=== PATIENT | male | born 1960 | race Caucasian/White ===

== ENCOUNTER 2017-03-18 12:49 | Inpatient (IN) | payer MEDICARE, OTHER ==
[~2017-03-18] VITALS: Ht 175.3 cm; Wt 76.7 kg
[2017-03-18 13:01] VITALS: BP 126/87; PULSE 74; RESP 20; TEMP 97.3; O2SAT 96
[2017-03-18] MEDS ORDERED: ACETAMINOPHEN 325 MG TAB PO ONE (13:30)
[2017-03-18 13:37] LABS: AUTOMATED NEUTROPHIL # 5.5 TH/MM3 (1.8-7.7); BASOPHIL # 0.1 TH/MM3 (0-0.2); BASOPHIL % 0.7 % (0.0-2.0); EOSINOPHIL # 0.3 TH/MM3 (0-0.4); EOSINOPHIL % 2.7 % (0.0-4.0); HEMATOCRIT 36.9 % (39.0-51.0); HEMO FLAGS DIFF FINAL; LYMPH % 29.5 % (9.0-44.0); LYMPHOCYTE # 2.8 TH/MM3 (1.0-4.8); MEAN CELL VOLUME 95.9 FL (80.0-100.0); MEAN CORPUSCULAR HEMOGLOBIN 32.7 PG (27.0-34.0); MEAN CORPUSCULAR HGB CONC 34.1 % (32.0-36.0); NEUT % 59.1 % (16.0-70.0); PLATELET COUNT 175 TH/MM3 (150-450); RED BLOOD COUNT 3.84 MIL/MM3 (4.50-5.90); RED CELL DISTRIBUTION WIDTH 12.2 % (11.6-17.2); WHITE BLOOD COUNT 9.3 TH/MM3 (4.0-11.0)
--- NOTE | 2017-03-18 13:44 | PD ---
HPI Chief Complaint: Psychiatric Symptoms Time Seen by Provider: 13:42 Travel History International Travel<30 days: No Contact w/Intl Traveler<30days: No Traveled to known affect area: No History of Present Illness HPI 57-year-old male that presents to the ED for evaluation of psychiatric illness. Patient has a chronic history of schizophrenia. This time he appears to be somewhat psychotic. Unclear as to the reason he is here. [facility] got [facility] message [facility] that apparently they are [facility]inghis medications. He appears the patient has been more psychotic and is sent him here for evaluation. Patient only complains that he cannot sleep and he is "awake ". Per patient he has diabetes and when I ask him if he takes insulin he states yes but when I ask him what his last and he gave himself insulin he tells me he doesn't take it. He does appear to be interacting with internal stimuli. He denies any drugs or alcohol. No homicidal or suicidal ideation. Again history is limited. Unclear as to the length of symptoms. He does complain of some vague abdominal pain. Patient cannot really tell me what he has. Per patient he is abdomen hurts but or tenderness he cannot really give me any other information. PFSH Past Medical History Medical History: Unable to Obtain Tetanus Vaccination: Unknown Past Surgical History Surgical History: Unable to Obtain Social History Alcohol Use: Yes Tobacco Use: No Substance Use: No Allergies-Medications (Allergen,Severity, Reaction): Coded Allergies: Chlorpromazine (Verified Allergy, Severe, 03/18/17) Uncoded Allergies: NKA (Allergy, Unknown, 08/06/03) THORAZINE (Allergy, Unknown, 08/06/03) Reported Meds & Prescriptions Reported Meds & Active Scripts Active No Active Prescriptions or Reported Medications Review of Systems ROS Limitations: Psychotic, Poor Historian Except as stated in HPI: all other systems reviewed are Neg Physical Exam Exam Limitations: Poor Historian, Psychotic Narrative GENERAL: SKIN: Warm and dry. HEAD: Atraumatic. Normocephalic. EYES: Pupils equal and round. No scleral icterus. No injection or drainage. ENT: No nasal bleeding or discharge. Mucous membranes pink and moist. Tongue is midline. No uvula deviation. NECK: Trachea midline. No JVD. CARDIOVASCULAR: Regular rate and rhythm. No murmurs, S3, S4. RESPIRATORY: No accessory muscle use. Clear to auscultation. Breath sounds equal bilaterally. GASTROINTESTINAL: Abdomen soft, non-tender, nondistended. Hepatic and splenic margins not palpable. MUSCULOSKELETAL: Extremities without clubbing, cyanosis, or edema. No obvious deformities. Full range of motion of the upper and lower extremities bilaterally. 2+ pulses bilaterally. NEUROLOGICAL: Awake and alert. No obvious cranial nerve deficits. Motor grossly within normal limits. Five out of 5 muscle strength in the arms and legs. Normal speech. PSYCHIATRIC: Psychotic mood and affect; insight and judgment normal. Data Data Last Documented VS Vital Signs Date Time Temp Pulse Resp B/P Pulse Ox O2 Delivery O2 Flow Rate FiO2 03/18/17 13:01 97.3 74 20 126/87 96 Orders Complete Blood Count With Diff (03/18/17 13:06) Comprehensive Metabolic Panel (03/18/17 13:06) Psych Screen (03/18/17 13:06) Drug Screen, Random Urine (03/18/17 13:06) Alcohol (Ethanol) (03/18/17 13:06) Salicylates (Aspirin) (03/18/17 13:06) Tylenol (Acetaminophen) (03/18/17 13:06) Acetaminophen (Tylenol) (03/18/17 13:30) Labs Laboratory Tests Test 03/18/17 13:20 White Blood Count 9.3 TH/MM3 Red Blood Count 3.84 MIL/MM3 Hemoglobin 12.6 GM/DL Hematocrit 36.9 % Mean Corpuscular Volume 95.9 FL Mean Corpuscular Hemoglobin 32.7 PG Mean Corpuscular Hemoglobin 34.1 % Concent Red Cell Distribution Width 12.2 % Platelet Count 175 TH/MM3 Mean Platelet Volume 9.6 FL Neutrophils (%) (Auto) 59.1 % Lymphocytes (%) (Auto) 29.5 % Monocytes (%) (Auto) 8.0 % Eosinophils (%) (Auto) 2.7 % Basophils (%) (Auto) 0.7 % Neutrophils # (Auto) 5.5 TH/MM3 Lymphocytes # (Auto) 2.8 TH/MM3 Monocytes # (Auto) 0.7 TH/MM3 Eosinophils # (Auto) 0.3 TH/MM3 Basophils # (Auto) 0.1 TH/MM3 CBC Comment DIFF FINAL Differential Comment Sodium Level 142 MEQ/L Potassium Level 4.1 MEQ/L Chloride Level 111 MEQ/L Carbon Dioxide Level 23.6 MEQ/L Anion Gap 7 MEQ/L Blood Urea Nitrogen 14 MG/DL Creatinine 1.29 MG/DL Estimat Glomerular Filtration 58 ML/MIN Rate Random Glucose 99 MG/DL Calcium Level 10.3 MG/DL Total Bilirubin 0.3 MG/DL Aspartate Amino Transf 17 U/L (AST/SGOT) Alanine Aminotransferase 19 U/L (ALT/SGPT) Alkaline Phosphatase 145 U/L Total Protein 7.0 GM/DL Albumin 3.9 GM/DL Acetaminophen Level LESS THAN 2.0 MCG/ML Ethyl Alcohol Level LESS THAN 3 MG/DL MDM Medical Decision Making Medical Screen Exam Complete: Yes Emergency Medical Condition: Yes Medical Record Reviewed: Yes Interpretation(s) CBC & BMP Diagram 03/18/17 13:20 LFTs WNL tox negative Differential Diagnosis Depression versus suicidal ideation versus anxiety versus adjustment disorder versus mood disorder versus bipolar disorder versus schizophrenia versus paranoid disorder versus psychosis versus substance abuse versus alcohol abuse versus alcohol induced psychosis versus homicidality addition versus cutting versus personality disorder Narrative Course 57-year-old male that presents to the ED for evaluation of psych. Patient was properly examined and was found to have signs and symptoms consistent with appears to be psychosis likely from schizophrenia. At this time I recommend labs. Patient will be medically clear. Okay to be seen by psych. Mental health screening was discussed with the patient. Diagnosis Primary Impression: Schizophrenia Qualified Code: F20.9 - Schizophrenia, unspecified type Scripts No Active Prescriptions or Reported Meds Garett Mccarthy Mar 18, 2017 13:44
[2017-03-18 13:53] LABS: ALT (GPT) 19 U/L (12-78); ANION GAP 7 MEQ/L (5-15); AST (GOT) 17 U/L (15-37); BICARBONATE 23.6 MEQ/L (21.0-32.0); BLOOD UREA NITROGEN 14 MG/DL (7-18); CHLORIDE 111 MEQ/L (98-107); GLOMERULAR FILTRATION RATE 58 ML/MIN (>89); POTASSIUM 4.1 MEQ/L (3.5-5.1); SODIUM (NA) 142 MEQ/L (136-145)
[2017-03-18 13:55] LABS: ACETAMINOPHEN LESS THAN 2.0 MCG/ML (10.0-30.0); ALKALINE PHOSPHATASE 145 U/L (45-117); TOTAL BILIRUBIN ADULT 0.3 MG/DL (0.2-1.0)
--- NOTE | 2017-03-18 18:16 | PD ---
History of Present Illness Chief Complaint: Psychiatric Symptoms Time Seen by Provider: 17:15 Travel History International Travel<30 Days: No Contact w/Intl Traveler<30days: No Known affected area: No Legal Status Legal Status: Voluntary History of Present Illness: History of Present Illness HPI 57-year-old male with history of schizoaffective disorder that presents to the ED on a voluntary basis for evaluation of psychiatric illness. From ED documentation it appears that the patient was sent here from [facility] although no documentation accompanies him. Unclear as to the reason he is here.Patient only complains that he cannot sleep and he is "awake " . Clinical information is limited as dakota is unable to provide much information at si time. EMR is reviewed. His last contact with [facility] psychiatry dept was in 2001 and he was hospitalized from May 2002 until Jul 2002. At the time he was given a dx of schizoaffective disorder as well as PSA. He has been treated with Clozaril in the past as per EMR. I have called his next of kin listed but the number on the record has been discontinued. I called [facility] for information. He is a patient there and his last medications are Tegretol 200 mg po BID, Doxepin 200 mg po at HS and Risperdal 4 mg po at HS. No other information available as it is after hours. Patient is seen in [facility] pod. Tall and thin male with a long newman and long hair. He is maintaining basic hygiene. He has resting tremor of upper extremities as well as slight fasciculation of lower lip. The patient is only able to provide minimal information as he appears to be internally preoccupied. His thoughts are fragmented " I'm not thinking of anything". " Hospital". " Not mentally ill". " I am saying diabetic. I need a rest ". He tells me that he is not sleeping but unable to provide any clarification. In terms of medication compliance he initially tells me he is not taking his medication but later says that he is. He does not appear to be under the influence but has not provided a urine sample as of this evaluation. [facility] Past Medical History Medical History: Unable to Obtain Tetanus Vaccination: Unknown Past Surgical History Surgical History: Unable to Obtain Psychiatric History Psychiatric History Hx Psychiatric Treatment: Was psychiatricallly hosp at [facility] in [place]. Is followed by [facility]. History of Inpatient Treatment: Yes Guns or firearms in home: No (unable to assess) Social History Single male. has been living by himself. Hx Alcohol Use: Yes Hx Tobacco Use: No Hx Substance Use: No (past hx of substance use as per EMR.) Family Psychiatric History Unknown. Allergies-Medications (Allergen,Severity, Reaction): Coded Allergies: Chlorpromazine (Verified Allergy, Severe, 03/18/17) Uncoded Allergies: NKA (Allergy, Unknown, 08/06/03) THORAZINE (Allergy, Unknown, 08/06/03) Reported Meds & Prescriptions Reported Meds & Active Scripts Active No Active Prescriptions or Reported Medications Review of Systems ROS Limitations: Psychotic Exam Alert: Yes [place]: Person, Place Mood: Anxious Affect: Flat Speech: Illogical ( w thought blocking) Eye Contact: Indirect Memory Intact: Comment (unable to test) Hallucinations: Other (appears internally stimulated) Delusions: No (unable to determine) Suicidal: Ideation (as per ed documetnation denied) Homicidal: Ideation (as per documentation denied. ) Insight/Judgement unable to assess. [facility] Medical Decision Making Medical Record Reviewed: Yes Assessment/Plan 57 year old male with hx of schizoaffective disorder under a voluntary basis who appears to be psychotic at this time. he may not be taking his psychiatric medications. Limited clinical information is available at this time. He requires inpatient psychiatric treatment at this time . He has requested to sign voluntary admission. Staff to contact [facility] for further information. Orders Complete Blood Count With Diff (03/18/17 13:06) Comprehensive Metabolic Panel (03/18/17 13:06) Psych Screen (03/18/17 13:06) Drug Screen, Random Urine (03/18/17 13:06) Alcohol (Ethanol) (03/18/17 13:06) Salicylates (Aspirin) (03/18/17 13:06) Tylenol (Acetaminophen) (03/18/17 13:06) Acetaminophen (Tylenol) (03/18/17 13:30) Results Vital Signs Date Time Temp Pulse Resp B/P Pulse Ox O2 Delivery O2 Flow Rate FiO2 03/18/17 13:01 97.3 74 20 126/87 96 Laboratory Tests Test 03/18/17 13:20 White Blood Count 9.3 Red Blood Count 3.84 Hemoglobin 12.6 Hematocrit 36.9 Mean Corpuscular Volume 95.9 Mean Corpuscular Hemoglobin 32.7 Mean Corpuscular Hemoglobin 34.1 Concent Red Cell Distribution Width 12.2 Platelet Count 175 Mean Platelet Volume 9.6 Neutrophils (%) (Auto) 59.1 Lymphocytes (%) (Auto) 29.5 Monocytes (%) (Auto) 8.0 Eosinophils (%) (Auto) 2.7 Basophils (%) (Auto) 0.7 Neutrophils # (Auto) 5.5 Lymphocytes # (Auto) 2.8 Monocytes # (Auto) 0.7 Eosinophils # (Auto) 0.3 Basophils # (Auto) 0.1 CBC Comment DIFF FINAL Differential Comment Sodium Level 142 Potassium Level 4.1 Chloride Level 111 Carbon Dioxide Level 23.6 Anion Gap 7 Blood Urea Nitrogen 14 Creatinine 1.29 Estimat Glomerular Filtration 58 Rate Random Glucose 99 Calcium Level 10.3 Total Bilirubin 0.3 Aspartate Amino Transf 17 (AST/SGOT) Alanine Aminotransferase 19 (ALT/SGPT) Alkaline Phosphatase 145 Total Protein 7.0 Albumin 3.9 Salicylates Level 2.5 Acetaminophen Level LESS THAN 2.0 Ethyl Alcohol Level LESS THAN 3 Diagnosis Primary Impression: Schizoaffective disorder Admitting Information Admitting Physician Requests: Admit Prescriptions No Active Prescriptions or Reported Meds Problem Qualifiers Primary Impression: Schizoaffective disorder Qualified Code: F25.0 - Schizoaffective disorder, bipolar type Rosina Easley Mar 18, 2017 18:16
[2017-03-18] MEDS ORDERED: TEGR200T PO (18:28)
[2017-03-18] MEDS ORDERED: RISP4TAB41 PO (18:30)
[2017-03-18] MEDS ORDERED: MAGNESIUM HYDROXIDE SUSP 30 ML CUP PO PRN (18:30)
[2017-03-18] MEDS ORDERED: DOXE100C4 PO (18:31)
[2017-03-18 19:25] VITALS: BP 138/65; PULSE 69; RESP 18; O2SAT 98
[2017-03-18 19:30] VITALS: BP 155/95; PULSE 97; RESP 20; O2SAT 98
[2017-03-19 05:42] VITALS: BP 136/87; PULSE 90; RESP 17; TEMP 98; O2SAT 95
[2017-03-19 09:54] LABS: ANION GAP 12 MEQ/L (5-15); BICARBONATE 24.7 MEQ/L (21.0-32.0); BLOOD UREA NITROGEN 19 MG/DL (7-18); CHLORIDE 102 MEQ/L (98-107); GLOMERULAR FILTRATION RATE 52 ML/MIN (>89); HDL CHOLESTEROL 41.8 MG/DL (40.0-60.0); LDL CHOLESTEROL 117 MG/DL (0-99); POTASSIUM 3.9 MEQ/L (3.5-5.1); SODIUM (NA) 139 MEQ/L (136-145)
[2017-03-19] MEDS ORDERED: traZODone HCL 50 MG TAB PO PRN (17:30)
[2017-03-19] MEDS ORDERED: diphenhydrAMINE HCL 50 MG/ML VIAL IM PRN (17:30)
[2017-03-19] MEDS ORDERED: ACETAMINOPHEN 325 MG TAB PO PRN (17:30)
[2017-03-19] MEDS ORDERED: LORazepam 2 MG/ML VIAL IM PRN (17:30)
[2017-03-19] MEDS ORDERED: MAGNESIUM HYDROXIDE SUSP 30 ML CUP PO PRN (17:30)
--- NOTE | 2017-03-19 17:35 | HHI.HP ---
Provisional Diagnosis Admission Date Mar 18, 2017 at 18:21 [place] I. Schizophrenia Certification of Person's Competence To Provide Express and Informed Consent I have personally examined Akira Wilde , a person being served at [facility] on, Mar 19, 2017 17:15. Express and informed consent means consent voluntarily given in writing, by a competent person, after sufficient explanation and disclosure of the subject matter involved to enable the person to make a knowing and willful decision without any element of force, fraud, deceit, duress, or other form of constraint or coercion. This person is 18 years of age or older, is not now known to be incompetent to consent to treatment with a guardian advocate, and does not have a health care surrogate or proxy currently making medical treatment decisions. I have found this person to be one of the following: [] Competent to provide express and informed consent, as defined above, for voluntary admission to this facility and is competent to provide express and informed consent for treatment. He/she has the consistent capacity to make well reasoned, willful, and knowing decisions concerning his or her medical or mental health treatment. The person fully and consistently understands the purpose of the admission for examination/placement and is fully capable of personally exercising all rights assured [place] [X] Incompetent to provide express and informed consent to voluntary admission, and this is incompetent to provide express and informed consent to treatment. The person must be transferred to involuntary status and a petition for a guardian advocate filed with the Circuit Court. [] Refusing to provide express and informed consent to voluntary admission but is competent to provide express and informed consent for treatment. The person must be discharged or transferred to involuntary status. Form shall be completed within 24 hours of a person's arrival at the receiving facility and filed in the clinical record of each person: 1. Admitted on a voluntary basis 2. Permitted to provide express and informed consent to his/her own treatment 3. Allowed to transfer from involuntary to voluntary status 4. Prior to permitting a person to consent to his or her own treatment after having been previously found incompetent to consent to treatment. History of Present Illness Capacity: Lacks Capacity HPI This is a 57-year-old male with a long history of psychiatric illness, variously described as schizoaffective disorder and schizophrenia. Patient was sent here from [facility] and he was not accompanied by any clinical information. He is however a patient there and is treated on an outpatient basis. He has been treated with Risperdal and Tegretol in the recent past and Clozaril in the distant past. The patient is an extremely poor historian and unable to answer questions for this physician. In fact, he exhibits echolalia with this physician. He was not able to eat his dinner in front of this physician despite being repeatedly encouraged to do so. He is disorganized and obviously unable to care for himself. There is no information as to whether the patient has been compliant with his medicines and the recent past, using drugs, etc. Review of Systems ROS Limitations: Clinical Condition Except as stated in HPI: all other systems reviewed are Neg Past Psych History Psychological trauma history Unknown Violence risk - others (6 mos) Minimal Violence risk - self (6 mos) Moderate Substance Abuse History Drugs/Alcohol past 12 months Denied Past Family Social History Coded Allergies: Chlorpromazine (Verified Allergy, Severe, 03/18/17) Uncoded Allergies: NKA (Allergy, Unknown, 08/06/03) THORAZINE (Allergy, Unknown, 08/06/03) Reported Medications Doxepin 100 Mg [id number] Mg PO HS #30 CAP Ref 0 03/18/17 Risperidone (Risperdal)4 Mg Tab4 Mg PO HS #30 TAB Ref 0 03/18/17 Carbamazepine (Tegretol)200 Mg [id number] Mg PO BID #60 TAB Ref 0 03/18/17 Current Medications Medications (Trade) Dose Ordered Sig/Nikhil Route Start Time Stop Time Status Last Admin (Tylenol) 650 mg Q4H PRN PO 03/18/17 18:30 (Milk Of Magnesia Liq) 30 ml DAILY PRN PO 03/18/17 18:30 (Mag-Al Plus Susp Liq) 30 ml Q6H PRN PO 03/18/17 18:30 Social History Unknown Patient's Strengths (min. 2) Verbal and has access to healthcare. Physical Exam GENERAL: SKIN: Warm and dry. HEAD: Normocephalic. EYES: No scleral icterus. No injection or drainage. NECK: Supple, trachea midline. No JVD or lymphadenopathy. CARDIOVASCULAR: Regular rate and rhythm without murmurs, gallops, or rubs. RESPIRATORY: Breath sounds equal bilaterally. No accessory muscle use. GASTROINTESTINAL: Abdomen soft, non-tender, nondistended. MUSCULOSKELETAL: No cyanosis, or edema. BACK: Nontender without obvious deformity. No CVA tenderness. Vital Signs Vital Signs Date Time Temp Pulse Resp B/P Pulse Ox O2 Delivery O2 Flow Rate FiO2 03/19/17 05:42 98.0 90 17 136/87 95 03/18/17 19:25 Room Air Mental Status Examination Speech: Incoherent Orientation: Person Memory: Impaired (describe) Thought Process: Loose Association Thought Content: Bizarre thinking, Paranoid Hallucination Type: Auditory Attention and Concentration: Easily Distracted Suicidal Ideation: No Previous Suicide Attempts: No Homicidal Ideation: No Previous Homicide Attempts: No Insight: Fair, Poor Judgment: Unrealistic Affect: Anxious Affect if Inappropriate: Blunt Mood: Appropriate, Sad Motor Activity: Normal gait Assessment & Plan Problem List: (1) Schizophrenia, disorganized, chronic ICD Code: F20.1 Assessment & Plan Estimated LOS: 7 days patient to receive an EKG and metabolic workup due to his need for antipsychotic therapy. This physician is concerned because the patient appears to have a belly that is enlarged. This physician is also considering long-acting injectable medications and therefore wants to make sure that the patient's cardiac conduction system is adequate to support their use. Finally, because the patient has been on Risperdal 4 mg per day, his prolactin level will be checked. We want to avoid sexual dysfunction, gynecomastia and osteoporosis. At this time he is a appropriate candidate for a change in medicine as the Risperdal was not apparently helping him. He will therefore be started on low dose Abilify at night. Jose M Mancilla MD Mar 19, 2017 17:35
[2017-03-19 18:17] VITALS: BP 129/91; PULSE 77; RESP 18; TEMP 97.8; O2SAT 97
[2017-03-19] MEDS ORDERED: ARIPiprazole 5 MG TAB PO SCH (21:00)
[2017-03-19] MEDS ORDERED: cloZAPine 100 MG TAB PO SCH (21:00)
[2017-03-20 06:00] VITALS: BP 126/66; PULSE 68; RESP 18; TEMP 97.6; O2SAT 98
[2017-03-20 08:18] LABS: AUTOMATED NEUTROPHIL # 7.4 TH/MM3 (1.8-7.7); BASOPHIL % 0.4 % (0.0-2.0); EOSINOPHIL # 0.1 TH/MM3 (0-0.4); HEMATOCRIT 38.6 % (39.0-51.0); HEMO FLAGS DIFF FINAL; LYMPH % 22.4 % (9.0-44.0); LYMPHOCYTE # 2.4 TH/MM3 (1.0-4.8); MEAN CELL VOLUME 95.1 FL (80.0-100.0); MEAN CORPUSCULAR HEMOGLOBIN 33.3 PG (27.0-34.0); MONO % 7.9 % (0.0-8.0); NEUT % 68.3 % (16.0-70.0); PLATELET COUNT 202 TH/MM3 (150-450); RED BLOOD COUNT 4.06 MIL/MM3 (4.50-5.90); RED CELL DISTRIBUTION WIDTH 12.3 % (11.6-17.2); WHITE BLOOD COUNT 10.9 TH/MM3 (4.0-11.0)
[2017-03-20 08:55] LABS: ALKALINE PHOSPHATASE 157 U/L (45-117); ALT (GPT) 22 U/L (12-78); ANION GAP 12 MEQ/L (5-15); AST (GOT) 18 U/L (15-37); BICARBONATE 21.3 MEQ/L (21.0-32.0); BLOOD UREA NITROGEN 19 MG/DL (7-18); CHLORIDE 108 MEQ/L (98-107); GLOMERULAR FILTRATION RATE 55 ML/MIN (>89); SODIUM (NA) 141 MEQ/L (136-145); TOTAL BILIRUBIN ADULT 0.3 MG/DL (0.2-1.0)
[2017-03-20] MEDS ORDERED: ZIPRASIDONE MESYLATE 20 MG VIAL IM ONE ×3 (10:10→20:45)
[2017-03-20] MEDS ORDERED: diphenhydrAMINE HCL 50 MG/ML VIAL ONE (10:10)
[2017-03-20] MEDS ORDERED: diphenhydrAMINE HCL 50 MG/ML VIAL IM ONE ×2 (11:00→20:45)
[2017-03-20 13:54] VITALS: BP 127/67; PULSE 83; RESP 14; O2SAT 99
[2017-03-20 15:26] VITALS: BP 127/87; PULSE 85; RESP 18; TEMP 98.1; O2SAT 95
--- NOTE | 2017-03-20 15:43 | HHI.PYPN ---
Subjective Remarks This is a request for second opinion. Patient was seen, admission note reviewed , and case discussed with nursing. Patient is disheveled, disorganized, and responding to internal stimuli. He is talking to himself, pacing the hallways, and laughing inappropriately. He is difficult to engage not answering questions appropriately. Does deny auditory visual hallucinations and has no insight into his reasons for admission. We are waiting consent to administer medications Objective Alert: Yes [place]: Person, Place Mood: Other (elevated) Affect: Labile Memory Intact: Comment (unable to test) Hallucinations: Other (appears internally stimulated) Delusions: No (unable to determine) Delusion Type: Paranoid (responding to internal stimuli) Suicidal: Ideation (as per ed documetnation denied) Homicidal: Ideation (as per documentation denied. ) Insight/Judgment Poor Labs Test 03/20/17 07:40 White Blood Count 10.9 TH/MM3 Red Blood Count 4.06 MIL/MM3 Hemoglobin 13.5 GM/DL Hematocrit 38.6 % Mean Corpuscular Volume 95.1 FL Mean Corpuscular Hemoglobin 33.3 PG Mean Corpuscular Hemoglobin 35.0 % Concent Red Cell Distribution Width 12.3 % Platelet Count 202 TH/MM3 Mean Platelet Volume 9.9 FL Neutrophils (%) (Auto) 68.3 % Lymphocytes (%) (Auto) 22.4 % Monocytes (%) (Auto) 7.9 % Eosinophils (%) (Auto) 1.0 % Basophils (%) (Auto) 0.4 % Neutrophils # (Auto) 7.4 TH/MM3 Lymphocytes # (Auto) 2.4 TH/MM3 Monocytes # (Auto) 0.9 TH/MM3 Eosinophils # (Auto) 0.1 TH/MM3 Basophils # (Auto) 0.0 TH/MM3 CBC Comment DIFF FINAL Differential Comment Sodium Level 141 MEQ/L Potassium Level 4.0 MEQ/L Chloride Level 108 MEQ/L Carbon Dioxide Level 21.3 MEQ/L Anion Gap 12 MEQ/L Blood Urea Nitrogen 19 MG/DL Creatinine 1.35 MG/DL Estimat Glomerular Filtration 55 ML/MIN Rate Random Glucose 122 MG/DL Calcium Level 10.5 MG/DL Total Bilirubin 0.3 MG/DL Aspartate Amino Transf 18 U/L (AST/SGOT) Alanine Aminotransferase 22 U/L (ALT/SGPT) Alkaline Phosphatase 157 U/L Total Protein 7.7 GM/DL Albumin 4.1 GM/DL Thyroid Stimulating Hormone 0.898 uIU/ML 3rd Gen Carbamazepine (Tegretol) Level 0.5 MCG/ML Vitals/IOs Vital Signs Date Time Temp Pulse Resp B/P Pulse Ox O2 Delivery O2 Flow Rate FiO2 03/20/17 15:26 98.1 85 18 127/87 95 03/18/17 19:25 Room Air Assessment & Plan Problem List: (1) Schizophrenia, disorganized, chronic ICD Code: F20.1 Assessment & Plan I agree with first opinion to continue petition. Criteria include acute psychosis and bizarre behavior Justification for Cont. Inpt. Patient will decompensate in a less restrictive setting Stepan Peres DO Mar 20, 2017 15:43
[2017-03-21] MEDS ORDERED: FLUMAZENIL 0.5 MG/5 ML VIAL IV PUSH PRN (05:30)
[2017-03-21] MEDS ORDERED: HALOPERIDOL LACTATE 5 MG/ML AMP IM ONE (05:30)
[2017-03-21] MEDS ORDERED: LORazepam 2 MG/ML VIAL IM ONE (05:30)
[2017-03-21] MEDS ORDERED: LORazepam 1 MG TAB PO PRN (05:30)
[2017-03-21] MEDS ORDERED: LORazepam 2 MG/ML VIAL IV PUSH PRN ×4 (05:30)
[2017-03-21 06:24] VITALS: BP 136/73; PULSE 84; RESP 18; TEMP 98.9; O2SAT 99
[2017-03-21] MEDS: LORazepam 2 MG TAB PO PRN ×2 (09:30→21:08)
--- NOTE | 2017-03-21 11:30 | HHI.PYPN ---
Subjective Remarks Patient seen and examined with counselor and nurse. Chart reviewed. Case discussed with nursing staff reports that the patient exhibits echolalia and is fairly disorganized. On my examination today, the patient is oriented to person , location and year but does indeed present as fairly disorganized. A significant fraction of his speech is word salad. He exhibits echopraxia. He complains of some back pain but has no other somatic complaints. Review of Systems ROS Limitations: Poor Historian Except as stated in HPI: all other systems reviewed are Neg Objective Alert: Yes [place]: Person, Place Mood: Calm Affect: Blunted Memory Intact: Comment (not formally assessed) Hallucinations: Other (remains internally preoccupied) Delusions: No Delusion Type: Other (no sandra delusions but thought disorder interferes) Suicidal: Ideation (no SI) Homicidal: Ideation (no HI) Insight/Judgment Poor Remarks No abnormal motor movements noted. Thought process disorganized. Speech rambling. Grooming and hygiene poor. Labs Labs reviewed. Vitals/IOs Vital Signs Date Time Temp Pulse Resp B/P Pulse Ox O2 Delivery O2 Flow Rate FiO2 03/21/17 06:24 98.9 84 18 136/73 99 03/18/17 19:25 Room Air Assessment & Plan Problem List: (1) Schizophrenia, disorganized, chronic ICD Code: F20.1 Assessment & Plan Resume patient's Risperdal and Tegretol once we obtain consents. Could consider long-acting injectable antipsychotic. LFTs okay besides mildly elevated alkaline phosphatase. Platelets okay. Continue to monitor on the high acuity unit. Continue other medications and care as ordered. Justification for Cont. Inpt. Impairment in reality construction. Medication changes in process. High risk for decompensation in a restrictive environment. Discharge Planning Pending psychiatric stabilization. Request HC Surrog/Guard Advoc?: Yes (I have requested healthcare surrogate/ guardian advocate) Alphonse Barber MD Mar 21, 2017 11:30
[2017-03-21 12:17] VITALS: BP 142/83; PULSE 84
[2017-03-21 13:37] LABS: HEMOGLOBIN A1b 1.4 %; HEMOGLOBIN Ao 83.5 %; HEMOGLOBIN F 0.9 %; HEMOGLOBIN LA1C 2.4 %; HEMOGLOBIN P3 4.1 %
[2017-03-21 18:23] VITALS: BP 129/79; PULSE 100; RESP 18; TEMP 98.4; O2SAT 97
[2017-03-21] MEDS ORDERED: risperiDONE ODT 2 MG TAB PO SCH (21:00)
[2017-03-22] MEDS: LORazepam 2 MG TAB PO PRN ×4 (02:45→20:00)
[2017-03-22 08:08] VITALS: BP 118/65; PULSE 78; RESP 18; TEMP 98.6; O2SAT 96
--- NOTE | 2017-03-22 11:39 | HHI.PYPN ---
Subjective Remarks Patient seen and examined with counselor and nurse. Chart reviewed. Eating well. Sleep is somewhat fragmented. Case discussed with counselor, nurse and occupational therapist in treatment team. Per nursing staff, patient remains behaviorally disorganized. Counselor has reached out to the patient's continuous pillowcase cutter through the FACT team. Unfortunately, continuous pillowcase cutter is not comfortable acting is patient's healthcare surrogate. On my examination today, the patient reports that he is "feeling good." I note that he has been incontinent of urine. He says that he is "talking with God." No SI or HI voiced. Psychiatric interview somewhat limited because of patient's degree of thought disorganization. We presently do not have anyone to act as healthcare surrogate for this patient. I did endeavor to call over to [facility] to see if they have any contact information for a friend or family member might serve as healthcare surrogate, but they have none. The number for the patient's father in our electronic medical record is nonfunctional. Review of Systems ROS Limitations: Poor Historian Except as stated in HPI: all other systems reviewed are Neg Objective Alert: Yes [place]: Person, Place Mood: Calm Affect: Blunted (tending towards flat) Memory Intact: Comment (not formally assessed) Hallucinations: Auditory (talking to God) Delusions: Yes Delusion Type: Other (judaism) Suicidal: Ideation (no SI) Homicidal: Ideation (no HI) Insight/Judgment Poor Remarks Patient with mild tremor but no diaphoresis or mydriasis. Incontinence of urine noted as I said. No other motoric abnormalities noted. Speech rambling. Labs Labs reviewed. No new labs. 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 Check a urinalysis given incontinence of urine. Continue to monitor on the high acuity unit in the meantime. Continue other medications and care as ordered. Justification for Cont. Inpt. Impairment in self-care. Impairment in reality construction. High risk for decompensation in a less restrictive environment. Discharge Planning Pending psychiatric stabilization. Request HC Surrog/Guard Advoc?: Yes Alphonse Barber MD Mar 22, 2017 11:39
[2017-03-22 13:42] VITALS: BP 120/73; PULSE 86
[2017-03-22 17:48] VITALS: BP 130/67; PULSE 77; RESP 17; TEMP 99.5; O2SAT 95
[2017-03-23] MEDS: LORazepam 2 MG TAB PO PRN (00:14)
[2017-03-23 06:02] VITALS: BP 129/78; PULSE 96; RESP 16; TEMP 97.1; O2SAT 96
[2017-03-23 11:31] LABS: BLOOD, URINE NEG (NEG); COMMENT (UR) CULT NOT INDICATED; CULTURE IF INDICATED CULT NOT INDICATED; GLUCOSE,URINE NEG (NEG); KETONE, URINE TRACE mg/dL (NEG); MUCUS URINE FEW /lpf (OCC); NITRITE,URINE NEG (NEG); PH, URINE 5.5 (5.0-8.5); URINE COLOR LIGHT-YELLOW (YELLW/STRAW)
--- NOTE | 2017-03-23 12:08 | HHI.PYPN ---
Subjective Remarks Patient seen and examined with counselor and nurse. Chart reviewed. Case discussed with nursing staff. Patient is having ongoing issues with incontinence of urine. On my examination today, patient remains quite disorganized. It is difficult to make much sense of what he is saying. He continues to display some echophenomena. He is presently calm. No SI or HI voiced. Psychotropics are on hold awaiting consents. Review of Systems ROS Limitations: Psychotic, Poor Historian Except as stated in HPI: all other systems reviewed are Neg Objective Alert: Yes [place]: Person, Place Mood: Calm Affect: Flat Memory Intact: Comment (not formally assessed) Hallucinations: Other (remains internally preoccupied) Delusions: No Delusion Type: Other (no delusions elicited today) Suicidal: Ideation (no SI) Homicidal: Ideation (no HI) Insight/Judgment Poor Remarks Thought process disorganized. Speech rambling, word salad at times. Grooming and hygiene are poor. Labs Labs reviewed. Urinalysis is bland. Test 03/23/17 10:50 Urine Color LIGHT-YELLOW Urine Turbidity CLEAR Urine pH 5.5 Urine Specific [place] 1.006 Urine Protein TRACE mg/dL Urine Glucose (UA) NEG mg/dL Urine Ketones TRACE mg/dL Urine Occult Blood NEG Urine Nitrite NEG Urine Bilirubin NEG Urine Urobilinogen LESS THAN 2.0 MG/DL Urine Leukocyte Esterase NEG Urine RBC LESS THAN 1 /hpf Urine WBC LESS THAN 1 /hpf Urine Mucus FEW /lpf Urine Sperm RARE Microscopic Urinalysis Comment CULT NOT INDICATED Vitals/IOs Vital Signs Date Time Temp Pulse Resp B/P Pulse Ox O2 Delivery O2 Flow Rate FiO2 03/23/17 06:02 97.1 96 16 129/78 96 Assessment & Plan Problem List: (1) Schizophrenia Assessment & Plan: Acute exacerbation ICD Code: F20.9 Assessment & Plan We are awaiting appointment of a guardian advocate to resume psychotropics. Continue to monitor on the high acuity unit in the meantime. I will ask the hospitalist to evaluate the patient for his ongoing issues with incontinence, although I do suspect this is at least in part related to his disorganized behavior in the context of his decompensated disorganized schizophrenia. Continue other medications and care as ordered. Justification for Cont. Inpt. Impairment in self-care. Impairment in reality construction. High risk for decompensation in a restrictive environment. Discharge Planning Pending outcome of [place] [facility] tomorrow. Request HC Surrog/Guard Advoc?: Yes Problem Qualifiers (1) Schizophrenia: Qualified Code: F20.1 - Disorganized schizophrenia Alphonse Barber MD Mar 23, 2017 12:08
[2017-03-23 18:48] VITALS: BP 147/81; PULSE 83; RESP 18; TEMP 97.8; O2SAT 96
[2017-03-24 05:40] VITALS: BP 130/76; PULSE 78; RESP 18; TEMP 99.1; O2SAT 98
--- NOTE | 2017-03-24 10:52 | HHI.PYPN ---
Subjective Remarks Patient seen and case discussed with nursing staff. Chart reviewed. Per nursing staff, patient remains very disorganized and will periodically clap his hands together for no reason. For me today, patient presents in much the same fashion. He holds his hands up in the air for no particular reason. He engages in other disorganized behaviors. Speech is largely word salad. Patient 's case was presented to the [employer] act court today, and the patient was retained on the unit and appointed guardian advocate through [facility]. Review of Systems ROS Limitations: Psychotic, Poor Historian Except as stated in HPI: all other systems reviewed are Neg Objective Alert: Yes [place]: Person, Place Mood: Calm Affect: Blunted Memory Intact: Comment (not formally assessed) Hallucinations: Other (internally stimulated) Delusions: Yes Delusion Type: Other (possible restorationism delusions.) Suicidal: Ideation (no SI) Homicidal: Ideation (no HI) Insight/Judgment Poor Remarks Besides the disorganized behaviors, no abnormal motor movements noted. Thought process remains disorganized. Speech rambling and largely word salad. Grooming and hygiene are poor. Labs Labs reviewed. Vitals/IOs Vital Signs Date Time Temp Pulse Resp B/P Pulse Ox O2 Delivery O2 Flow Rate FiO2 03/24/17 05:40 99.1 78 18 130/76 98 Assessment & Plan Problem List: (1) Schizophrenia ICD Code: F20.9 Assessment & Plan Now that we have a guardian advocate, resume Risperdal at a dose of 1 mg twice daily with plans to titrate to effect. Could also consider long-acting injectable antipsychotic. Resume carbamazepine. Plan to check a level after the appropriate interval. Continue to monitor on the high acuity unit. Hospitalist data management consultant input noted and appreciated. Continue other medications and care as ordered. Justification for Cont. Inpt. Impairment in reality construction. Impairment in self-care. Impairment in social function. Medication changes planned. High risk for decompensation pending psychiatric stabilization. Discharge Planning Pending psychiatric stabilization. Request HC Surrog/Guard Advoc?: Yes Problem Qualifiers (1) Schizophrenia: Qualified Code: F20.1 - Disorganized schizophrenia Alphonse Barber MD Mar 24, 2017 10:51
--- NOTE | 2017-03-24 15:18 | PD.CONS ---
[facility] By [facility]ry team Reason for Consult Urinary incontinence Primary Care Physician Unknown Diagnoses: History of Present Illness Patient is a 57-year-old male with primary medical history of schizophrenia who initially came into the hospital for evaluation of psychiatric illness. As per records, patient was transferred from [facility] although no documentation of completed the patient. It was for unclear reason that patient came to the hospital but initial complaint was she is unable to sleep and has been awake. He is now admitted to inpatient psychiatry unit for further evaluation. Consulted for medical management of urinary incontinence. Patient has ongoing urinary incontinence but he also has significant behavioral disorganization secondary to schizophrenia. Patient seen and examined today. Reports that he is able to feel that he is going to urinate but unable to control it. Denies any dysuria, hematuria, abdominal pain and cramping. Denies pain and discomfort. Denies SOB/ dyspnea. Denies chest pain, palpitations, headaches, dizziness. Denies fevers, chills, n/v/d. Denies being diagnosed with any prostate problems. Review of Systems ROS Limitations: Poor Historian Past Family Social History Allergies: Coded Allergies: Chlorpromazine (Verified Allergy, Severe, 03/18/17) Uncoded Allergies: NKA (Allergy, Unknown, 08/06/03) THORAZINE (Allergy, Unknown, 08/06/03) Past Medical History Denies any past medical history but reports he may have diabetes Past Surgical History Denies any past surgical history Reported Medications Reported Meds & Active Scripts Active Reported Doxepin (Doxepin HCl) 100 Mg Cap 100 Mg PO HS Risperdal (Risperidone) 4 Mg Tab 4 Mg PO HS Tegretol (Carbamazepine) 200 Mg Tab 100 Mg PO BID Active Ordered Medications Current Medications Medications (Trade) Dose Ordered Sig/Nikhil Route Start Time Stop Time Status Last Admin (Tylenol) 650 mg Q4H PRN PO 03/18/17 18:30 (Milk Of Magnesia Liq) 30 ml DAILY PRN PO 03/18/17 18:30 (Mag-Al Plus Susp Liq) 30 ml Q6H PRN PO 03/18/17 18:30 (Ativan) 1 mg Q6H PRN PO 03/19/17 17:30 Hold (Ativan Inj) 1 mg Q6H PRN IM 03/19/17 17:30 Hold (Benadryl) 50 mg Q6H PRN PO 03/19/17 17:30 Hold (Benadryl Inj) 50 mg Q6H PRN IM 03/19/17 17:30 Hold (Tylenol) 650 mg Q4H PRN PO 03/19/17 17:30 (Milk Of Magnesia Liq) 30 ml DAILY PRN PO 03/19/17 17:30 (Ativan) 1 mg Q4H PRN PO 03/21/17 05:30 03/23/17 20:12 (Ativan Inj) 1 mg Q4H PRN IV PUSH 03/21/17 05:30 (Ativan) 2 mg Q2H PRN PO 03/21/17 05:30 03/23/17 00:14 (Ativan Inj) 2 mg Q2H PRN IV PUSH 03/21/17 05:30 (Ativan Inj) 2 mg Q1H PRN IV PUSH 03/21/17 05:30 (Ativan Inj) 2 mg Q15M PRN IV PUSH 03/21/17 05:30 (Romazicon Inj) 0.2 mg Q1M PRN IV PUSH 03/21/17 05:30 (TEGretol) 200 mg Q12HR PO 03/21/17 21:00 Hold (risperDAL M-TAB) 4 mg HS PO 03/21/17 21:00 Hold Family History Grandfather has diabetes Social History Alcohol use Denies tobacco use Past history of substance use per EMR review Physical Exam Vital Signs Vital Signs Date Time Temp Pulse Resp B/P Pulse Ox O2 Delivery O2 Flow Rate FiO2 03/24/17 05:40 99.1 78 18 130/76 98 03/23/17 18:48 97.8 83 18 147/81 96 Physical Exam GENERAL: This is a dishevelled, unkempt, older than stated age, not in any distress. SKIN: No rashes, ecchymoses or lesions. Cool and dry. HEAD: Atraumatic. Normocephalic. No temporal or scalp tenderness. EYES: Pupils equal round and reactive. No scleral icterus. No injection or drainage. ENT: Nose without bleeding. Throat without erythema. Uvula midline. Airway patent. NECK: Trachea midline. No JVD or lymphadenopathy. Supple, nontender, no meningeal signs. CARDIOVASCULAR: Regular rate and rhythm without murmurs, gallops, or rubs. RESPIRATORY: Clear to auscultation. Breath sounds equal bilaterally. No wheezes , rales, or rhonchi. GASTROINTESTINAL: Abdomen soft, non-tender, nondistended. Active 4. : Pants were wet. MUSCULOSKELETAL: Extremities without clubbing, cyanosis, trace edema. NEUROLOGICAL: Awake and alert. With confusion. Moves all extremity. Normal to garbled speech. Result Diagram: 03/20/17 0740 03/20/17 0740 Assessment and Plan Problem List: (1) Schizophrenia ICD Code: F20.9 Status: Acute (2) Urinary incontinence ICD Code: R32 Status: Acute Assessment and Plan Patient is a 57-year-old male with primary medical history of schizophrenia who initially came into the hospital for evaluation of psychiatric illness. As per records, patient was transferred from [facility] although no documentation of completed the patient. It was for unclear reason that patient came to the hospital but initial complaint was she is unable to sleep and has been awake. He is now admitted to inpatient psychiatry unit for further evaluation. Consulted for medical management of urinary incontinence. Schizophrenia - managed by psychiatry team Urinary incontinence - Check UA, C&S if warranted - Check PSA - may benefit with post void residual check, bladder scan - may also be caused by severe schizophrenic disorder JESSIE - possibly prerenal, CKD - Encourage PO fluid intake - US renal bladder DVT prop ambulatory Thank you for this consultation. We will follow patient with you. Written by Alirio Laughlin, acting as scribe for Dr. Colby on 03/24/17 at 15: 17. This note was transcribed by scribe [ Alirio Laughlin,]. I, Dr. Jonathan Colby personally performed the history, physical exam, and medical decision making; and confirmed the accuracy of the information in the transcribed note. Authenticated by Dr. Jonathan Colby on 03/24/17 at 17:39. Code Status Full code Discussed Condition With Patient, nursing Problem Qualifiers (1) Schizophrenia: Qualified Code: F20.1 - Disorganized schizophrenia Alirio Underwood Mar 24, 2017 15:18 Jonathan Colby MD Mar 24, 2017 17:39
--- NOTE | 2017-03-24 17:35 | RADRPT ---
EXAM DATE/TIME: 03/24/2017 16:50 [place] COMPARISON: No previous studies available for comparison. INDICATIONS : Increased BUN/creatinine. MEDICAL HISTORY : Schizoaffective disorder. SURGICAL HISTORY : None. ENCOUNTER: Initial ACUITY: 1 day PAIN SCORE: 0/10 LOCATION: Bilateral flank MEASUREMENTS: RIGHT KIDNEY: 11.5 x 5.0 x 6.5 cm LEFT KIDNEY: 12.7 x 4.9 x 5.9 cm FINDINGS: RIGHT KIDNEY: The right kidney is normal in size and shape but is diffusely increased in echogenicity with poor cor tical medullary differentiation. There is a small simple cyst in the central kidney measuring up to 1 1 x 15 x 13 mm. There is no solid mass or obstruction. LEFT KIDNEY: The left kidney is normal in size and shape with diffuse increased echogenicity and poor cortical med ullary differentiation. There are 2 small simple cysts. There is no solid mass or evidence of obstruc tion. BLADDER: Within normal limits given the degree of distension. CONCLUSION: 1. Kidneys are abnormally increased in echogenicity with poor cortical medullary differentiation cons istent with medical renal disease. 2. No evidence hydronephrosis. There are small benign-appearing cystic lesions. Momo Willard MD on March 24, 2017 at 17:31 Board Certified Radiologist. This report was verified electronically.
[2017-03-24 19:00] VITALS: BP 140/63; PULSE 73; RESP 17; TEMP 99.4; O2SAT 99
[2017-03-24] MEDS: risperiDONE ODT 1 MG TAB PO SCH (20:42)
[2017-03-25 05:30] VITALS: BP 111/57; PULSE 65; RESP 16; TEMP 97.2; O2SAT 97
[2017-03-25] MEDS: risperiDONE ODT 1 MG TAB PO SCH ×2 (08:18→20:46)
--- NOTE | 2017-03-25 11:31 | HHI.PYPN ---
Subjective Remarks Patient seen and examined with counselor and nurse. Chart reviewed. Case discussed with nursing staff. On my examination today, the patient remains disorganized with significant thought blocking. He is somewhat better groomed today. No echo phenomenon noted. No evident side effects from medications. No physical complaints. Review of Systems ROS Limitations: Psychotic, Poor Historian Except as stated in HPI: all other systems reviewed are Neg Objective Alert: Yes [place]: Person, Place Mood: Calm Affect: Flat Memory Intact: Comment (not formally assessed) Hallucinations: Other (remains internally preoccupied) Delusions: No Delusion Type: Other (no delusions elicited today) Suicidal: Ideation (no SI) Homicidal: Ideation (no HI) Insight/Judgment Poor Remarks No motor abnormalities. No hand tremor, no dystonia, no dyskinesia. Thought process disorganized with thought blocking. Speech rambling and largely nonsensical. Labs Labs reviewed. Test 03/24/17 19:10 Prostate Specific Antigen 2.18 NG/ML Vitals/IOs Vital Signs Date Time Temp Pulse Resp B/P Pulse Ox O2 Delivery O2 Flow Rate FiO2 03/25/17 05:30 97.2 65 16 111/57 97 Assessment & Plan Problem List: (1) Schizophrenia ICD Code: F20.9 Assessment & Plan Titrate Risperdal through the weekend. Consent has been obtained for carbamazepine and we will start this as well. Continue to monitor on the high acuity unit. Continue other medications and care as ordered. Hospitalist renewable energy consultant input noted and appreciated. Justification for Cont. Inpt. Impairment in reality construction. Impairment in self-care. High risk for decompensation in a less restrictive environment. Medication changes in process. Discharge Planning Pending psychiatric stabilization Request HC Surrog/Guard Advoc?: Yes Problem Qualifiers (1) Schizophrenia: Qualified Code: F20.1 - Disorganized schizophrenia Alphonse Barber MD Mar 25, 2017 11:30
[2017-03-25 17:47] VITALS: BP_SYST 121; BP_SYST 136; BP_DIAS 68; BP_DIAS 78; PULSE 90; PULSE 98; RESP 16; RESP 18; TEMP 97; TEMP 98.3; O2SAT 97; O2SAT 98
[2017-03-25] MEDS: carBAMazepine 200 MG TAB PO SCH (20:45)
[2017-03-26 05:25] VITALS: BP 125/63; PULSE 81; RESP 18; TEMP 97.4; O2SAT 98
[2017-03-26] MEDS: risperiDONE ODT 1 MG TAB PO SCH ×2 (08:45→21:22)
[2017-03-26] MEDS: carBAMazepine 200 MG TAB PO SCH ×2 (08:45→21:22)
[2017-03-26 12:33] LABS: BICARBONATE 28.2 MEQ/L (21.0-32.0)
--- NOTE | 2017-03-26 13:49 | HHI.PYPN ---
Subjective Remarks Pt seen and discussed with staff. He remains disorganized but thought blocking is less. He has been calm and cooperative. No agitation /behavioral problems on unit. No SI/HI Objective Alert: Yes [place]: Person, Place Mood: Calm Affect: Flat Memory Intact: Comment (fair) Hallucinations: Other (remains internally preoccupied) Delusions: No Delusion Type: Other (no delusions elicited today) Suicidal: Ideation (no SI) Homicidal: Ideation (no HI) Insight/Judgment poor Remarks thought blocking Labs Test 03/26/17 11:00 Sodium Level 142 MEQ/L Potassium Level 4.0 MEQ/L Chloride Level 105 MEQ/L Carbon Dioxide Level 28.2 MEQ/L Anion Gap 9 MEQ/L Blood Urea Nitrogen 19 MG/DL Creatinine 1.24 MG/DL Estimat Glomerular Filtration 61 ML/MIN Rate Random Glucose 111 MG/DL Calcium Level 9.8 MG/DL Vitals/IOs Vital Signs Date Time Temp Pulse Resp B/P Pulse Ox O2 Delivery O2 Flow Rate FiO2 03/26/17 05:25 97.4 81 18 125/63 98 Assessment & Plan Problem List: (1) Schizophrenia ICD Code: F20.9 Assessment & Plan Continue current tx plan. Estimated LOS: days Justification for Cont. Inpt. impairments in reality testing and self care Request HC Surrog/Guard Advoc?: Yes Problem Qualifiers (1) Schizophrenia: Qualified Code: F20.1 - Disorganized schizophrenia Irene Milan MD Mar 26, 2017 13:49
--- NOTE | 2017-03-26 14:18 | HHI.PR ---
Subjective Remarks Enuresis work up is negative for any treatable etiology. Etiology may be voluntary/psychogenic. If this problem persists in a coherent state, further work up with urology as an outpatient might be warrented. Renal ultrasound suggests a degree of CKD which likely makes him prone for compromised renal function in stressing physiologic states, but his renal function has normalized and his baseline is likely CKD1 without compromise of his GFR. No evidence of prostatitis or prostate cancer. No further work up at this time. Medical consult team will sign off today. Objective Vitals Vital Signs Date Time Temp Pulse Resp B/P Pulse Ox O2 Delivery O2 Flow Rate FiO2 03/26/17 05:25 97.4 81 18 125/63 98 03/25/17 17:47 98.3 98 16 136/78 97 03/25/17 17:47 97.0 90 18 121/68 98 Result Diagram: 03/26/17 1100 A/P Problem List: (1) Schizophrenia ICD Code: F20.9 Status: Acute (2) Urinary incontinence ICD Code: R32 Status: Acute Problem Qualifiers (1) Schizophrenia: Qualified Code: F20.1 - Disorganized schizophrenia Jonathan Colby MD Mar 26, 2017 14:18
[2017-03-26 18:25] VITALS: BP 145/71; PULSE 94; RESP 19; TEMP 98.6; O2SAT 96
[2017-03-26] MEDS: diphenhydrAMINE HCL 50 MG CAP PO PRN (21:22)
[2017-03-27] MEDS: ACETAMINOPHEN 325 MG TAB PO PRN (01:18)
[2017-03-27 05:40] VITALS: BP 128/81; PULSE 83; RESP 18; TEMP 98.2; O2SAT 97
[2017-03-27] MEDS: risperiDONE ODT 1 MG TAB PO SCH ×2 (08:03→20:47)
[2017-03-27] MEDS: carBAMazepine 200 MG TAB PO SCH ×2 (08:03→20:47)
--- NOTE | 2017-03-27 15:19 | HHI.PYPN ---
Subjective Remarks Pt seen and discussed with staff. He remains delusional (believes he is God" but is less fixated on delusions today. He reports that he continues to receive special "communications".He has been more active in milieu. He is compliant with medications and reports that he likes them because they are "fixing all of my systems. You know belly..body..legs". NO SI/HI Objective Alert: Yes [place]: Person, Place Mood: Calm Affect: Restricted Memory Intact: Comment (fair) Hallucinations: Auditory, Other (remains internally preoccupied) Delusions: Yes Delusion Type: Paranoid Suicidal: Ideation (no SI) Homicidal: Ideation (no HI) Insight/Judgment poor Vitals/IOs Vital Signs Date Time Temp Pulse Resp B/P Pulse Ox O2 Delivery O2 Flow Rate FiO2 03/27/17 05:40 98.2 83 18 128/81 97 Assessment & Plan Problem List: (1) Schizophrenia ICD Code: F20.9 Assessment & Plan Continue current tx plan. Estimated LOS: days Justification for Cont. Inpt. impairments in reality construction. Request HC Surrog/Guard Advoc?: Yes Problem Qualifiers (1) Schizophrenia: Qualified Code: F20.1 - Disorganized schizophrenia Irene Milan MD Mar 27, 2017 15:19
[2017-03-27 18:00] VITALS: BP 123/67; PULSE 84; RESP 18; TEMP 98.7; O2SAT 97
[2017-03-27] MEDS: LORazepam 1 MG TAB PO PRN (18:07)
[2017-03-27] MEDS: diphenhydrAMINE HCL 50 MG CAP PO PRN (20:47)
[2017-03-28 06:19] VITALS: BP 122/63; PULSE 96; RESP 18; TEMP 97.3; O2SAT 99
[2017-03-28] MEDS: carBAMazepine 200 MG TAB PO SCH ×2 (09:01→21:14)
[2017-03-28] MEDS: risperiDONE ODT 1 MG TAB PO SCH (09:02)
--- NOTE | 2017-03-28 10:29 | HHI.PYPN ---
Subjective Remarks Patient seen and examined with counselor. Chart reviewed. Case discussed with nursing staff reports the patient is growing somewhat more organized. On my examination today, the patient does indeed seem more organized. He is able to carry on a simple conversation. He denies any suicidal or homicidal ideation. He denies any audiovisual hallucinations but appears somewhat internally preoccupied. He appears to be better attending to his basic needs. Denies side effects from medications. Resistant to resuming clozapine. I did speak with patient's outpatient manager case, Nadir Montejo, over the phone. He notes that clozapine has constituted a core medication for the patient in combination with Risperdal. He thinks that the patient's outpatient psychiatric provider would be agreeable to a long-acting injectable, either Risperdal Consta or Invega Sustenna. He notes that the patient has lost about 20 pounds of weight in the last year. He plans to come visit with the patient at the end of the week. Review of Systems ROS Limitations: Psychotic, Poor Historian Except as stated in HPI: all other systems reviewed are Neg Objective Alert: Yes [place]: Person, Place Mood: Calm Affect: Flat Memory Intact: Comment (not formally assessed) Hallucinations: Other (remains internally stimulated) Delusions: Yes Delusion Type: Paranoid (with some lutheran overtones) Suicidal: Ideation (denies SI) Homicidal: Ideation (denies HI) Insight/Judgment Poor Remarks No motor abnormalities noted. Thought process considerably more linear today. Grooming and hygiene improved. Labs Labs reviewed. Vitals/IOs Vital Signs Date Time Temp Pulse Resp B/P Pulse Ox O2 Delivery O2 Flow Rate FiO2 03/28/17 06:19 97.3 96 18 122/63 99 Assessment & Plan Problem List: (1) Schizophrenia ICD Code: F20.9 Assessment & Plan Patient has been tolerating Risperdal well without side effects. Initiate Invega Sustenna 156 mg IM with plans for the booster dose later this week. This is renally dosed in light of patient's decreased GFR. I will discontinue patient's Risperdal as Invega Sustenna does not require oral supplementation. Check a CBC and initiated clozapine 50 mg at bedtime. Continue carbamazepine as ordered and plan to check a carbamazepine level middle of the week. I will also request a dietitian consultation given reports of weight loss. Continue to monitor on the high acuity unit. Continue other medications and care as ordered. Justification for Cont. Inpt. Impairment in reality construction. Impairment in self-care, although this is improving. Medication changes in process. High risk for decompensation in a less restrictive environment pending psychiatric stabilization. Discharge Planning Pending psychiatric stabilization. Request HC Surrog/Guard Advoc?: Yes Problem Qualifiers (1) Schizophrenia: Qualified Code: F20.1 - Disorganized schizophrenia Alphonse Barber MD March 28, 2017 10:29
[2017-03-28] MEDS ORDERED: PALIPERIDONE PALMITATE 156 MG/ML SYRINGE IM ONE (15:00)
[2017-03-28 17:26] VITALS: BP 135/70; PULSE 80; RESP 18; TEMP 98.5; O2SAT 97
[2017-03-28] MEDS: cloZAPine 25 MG TAB PO SCH (21:15)
[2017-03-28 21:28] LABS: AUTOMATED NEUTROPHIL # 4.5 TH/MM3 (1.8-7.7); BASOPHIL # 0.1 TH/MM3 (0-0.2); BASOPHIL % 0.9 % (0.0-2.0); EOSINOPHIL # 0.2 TH/MM3 (0-0.4); EOSINOPHIL % 2.7 % (0.0-4.0); HEMATOCRIT 35.6 % (39.0-51.0); HEMO FLAGS DIFF FINAL; LYMPH % 32.8 % (9.0-44.0); LYMPHOCYTE # 2.8 TH/MM3 (1.0-4.8); MEAN CORPUSCULAR HEMOGLOBIN 33.6 PG (27.0-34.0); MEAN CORPUSCULAR HGB CONC 34.9 % (32.0-36.0); MONO % 10.1 % (0.0-8.0); NEUT % 53.5 % (16.0-70.0); PLATELET COUNT 203 TH/MM3 (150-450); RED CELL DISTRIBUTION WIDTH 12.4 % (11.6-17.2); WHITE BLOOD COUNT 8.4 TH/MM3 (4.0-11.0)
[2017-03-29] MEDS: diphenhydrAMINE HCL 50 MG CAP PO PRN (01:35)
[2017-03-29 05:52] VITALS: BP 124/76; PULSE 88; RESP 18; TEMP 98.2; O2SAT 98
[2017-03-29] MEDS: carBAMazepine 200 MG TAB PO SCH ×2 (09:25→20:35)
--- NOTE | 2017-03-29 09:39 | HHI.PYPN ---
Subjective Remarks Patient seen and examined with counselor and nurse. Chart reviewed. Case discussed with nurse, counselor and recreation therapist in treatment team. Per nursing staff, the patient is more organized and verbal but remains somewhat bizarre. Recreation therapist notes that the patient is attending groups. On my examination today, the patient once again seems more organized with respect his thought process. He is able to hold a brief, albeit somewhat superficial conversation. He says that he is tolerating his psychotropics well and doing well on the unit generally. He has no physical complaints. He is agreeable to the plan for booster dose of Invega Sustenna and titration of clozapine. Review of Systems ROS Limitations: Psychotic, Poor Historian Except as stated in HPI: all other systems reviewed are Neg Objective Alert: Yes [place]: Person, Place Mood: Calm Affect: Flat (remains fairly flat) Memory Intact: Comment (not formally assessed) Hallucinations: Other (internally preoccupied) Delusions: No Delusion Type: Other (no delusions elicited today) Suicidal: Ideation (no SI) Homicidal: Ideation (no HI) Insight/Judgment Poor Remarks No motor abnormalities noted. Thought process less disorganized. Speech more coherent and understandable. Grooming and hygiene improving. Labs Test 03/28/17 21:15 White Blood Count 8.4 TH/MM3 Red Blood Count 3.70 MIL/MM3 Hemoglobin 12.4 GM/DL Hematocrit 35.6 % Mean Corpuscular Volume 96.0 FL Mean Corpuscular Hemoglobin 33.6 PG Mean Corpuscular Hemoglobin 34.9 % Concent Red Cell Distribution Width 12.4 % Platelet Count 203 TH/MM3 Mean Platelet Volume 9.5 FL Neutrophils (%) (Auto) 53.5 % Lymphocytes (%) (Auto) 32.8 % Monocytes (%) (Auto) 10.1 % Eosinophils (%) (Auto) 2.7 % Basophils (%) (Auto) 0.9 % Neutrophils # (Auto) 4.5 TH/MM3 Lymphocytes # (Auto) 2.8 TH/MM3 Monocytes # (Auto) 0.8 TH/MM3 Eosinophils # (Auto) 0.2 TH/MM3 Basophils # (Auto) 0.1 TH/MM3 CBC Comment DIFF FINAL Differential Comment Labs reviewed. ANC adequate for ongoing clozapine therapy. Vitals/IOs Vital Signs Date Time Temp Pulse Resp B/P Pulse Ox O2 Delivery O2 Flow Rate FiO2 03/29/17 05:52 98.2 88 18 124/76 98 Assessment & Plan Problem List: (1) Schizophrenia ICD Code: F20.9 Assessment & Plan Patient received Invega Sustenna initial dose yesterday without incident. Plan to administer booster dose towards the end of the week. Titrate clozapine to 25 /50 mg. Plan for additional titration over the succeeding days. Continue carbamazepine as ordered. Obtain a carbamazepine level tomorrow morning. Continue to monitor on the high acuity unit. Continue other medications and care as ordered. Justification for Cont. Inpt. Impairment in reality construction. Impairment in self-care, perhaps improving. Medication changes in process. High risk for decompensation pending psychiatric stabilization. Discharge Planning Pending psychiatric stabilization. Plan presently is for home with outpatient psychiatric follow-up with the FACT team. 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
[2017-03-29 18:23] VITALS: BP 134/67; PULSE 97; RESP 18; TEMP 98.4; O2SAT 98
[2017-03-29] MEDS: cloZAPine 25 MG TAB PO SCH (20:35)
[2017-03-30 06:09] VITALS: BP 129/83; PULSE 98; RESP 18; TEMP 97.1; O2SAT 97
[2017-03-30] MEDS: carBAMazepine 200 MG TAB PO SCH ×2 (08:36→21:09)
[2017-03-30] MEDS: cloZAPine 25 MG TAB PO SCH ×2 (08:36→21:09)
--- NOTE | 2017-03-30 11:41 | HHI.PYPN ---
Subjective Remarks Patient seen and examined with counselor and RN. Chart reviewed. Case d/w RN who reports that the patient continues to improve. He is engaging in full conversations and reportedly feels subjectively clearer. For me today, patient denies AVH, noting "my eyes have 20/20 vision." He says that he feels improved from a psychiatric standpoint. TP does indeed seem more linear. He denies side effects from medications. Review of Systems ROS Limitations: Poor Historian Except as stated in HPI: all other systems reviewed are Neg Objective Alert: Yes [place]: Person, Place Mood: Calm Affect: Blunted Memory Intact: Comment (not formally assessed) Hallucinations: Other (Denies AVH) Delusions: No Delusion Type: Other (No delusions) Suicidal: Ideation (no SI) Homicidal: Ideation (no HI) Insight/Judgment Poor Remarks No motor abnormalities noted. TP more linear today. Speech more coherent. Labs Test 03/30/17 06:13 Carbamazepine (Tegretol) Level 7.3 MCG/ML Labs reviewed. CBZ level is within therapeutic range. Vitals/IOs Vital Signs Date Time Temp Pulse Resp B/P Pulse Ox O2 Delivery O2 Flow Rate FiO2 03/30/17 06:09 97.1 98 18 129/83 97 Assessment & Plan Problem List: (1) Schizophrenia ICD Code: F20.9 Assessment & Plan Continue clozapine titration: 75mg total daily dose today, 100mg total daily dose tomorrow. Plan for booster dose of Invega Sustenna by the end of the week. Continue CBZ as ordered. Continue to monitor on inpatient unit. Continue other medications and care as ordered. Justification for Cont. Inpt. Med changes in process. High risk for decompensation in less restrictive environment pending further stabilization. Discharge Planning Home with OP follow up pending psychiatric stabilization. 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
[2017-03-30 18:18] VITALS: BP 151/74; PULSE 80; RESP 16; TEMP 98.3; O2SAT 98
[2017-03-31 05:21] VITALS: BP 133/81; PULSE 106; RESP 18; TEMP 97.9; O2SAT 95
[2017-03-31] MEDS: cloZAPine 25 MG TAB PO SCH (08:53)
[2017-03-31] MEDS: carBAMazepine 200 MG TAB PO SCH ×2 (08:53→20:50)
--- NOTE | 2017-03-31 11:14 | HHI.PYPN ---
Subjective Remarks Patient seen and examined with counselor. Chart reviewed. Case discussed with nursing staff. No behavioral issues noted. Case also discussed with patient's outpatient case management manager who came to visit with the patient today. Outpatient case management manager feels that the patient is improving but not yet at his baseline. For me today, patient's thought process seems more organized. He has allowed the nursing staff to give him a shaven a haircut, and he is very pleased with his improved appearance. No psychotic symptoms. Denies side effects from medications. Agreeable to the treatment plan going forward. Review of Systems ROS Limitations: Poor Historian Except as stated in HPI: all other systems reviewed are Neg Objective Alert: Yes [place]: Person, Place Mood: Calm Affect: Blunted (remains somewhat blunted.) Memory Intact: Comment (not formally assessed) Hallucinations: Other (No AVH) Delusions: No Delusion Type: Other (No delusions) Suicidal: Ideation (no SI) Homicidal: Ideation (no HI) Insight/Judgment Poor Remarks No abnormal motor movements noted. Speech wnl for rate, tone, volume. Grooming /hygiene improved. Labs Labs reviewed. Vitals/IOs Vital Signs Date Time Temp Pulse Resp B/P Pulse Ox O2 Delivery O2 Flow Rate FiO2 03/31/17 05:21 97.9 106 18 133/81 95 Assessment & Plan Problem List: (1) Schizophrenia ICD Code: F20.9 Assessment & Plan Titrate clozapine to 25/75mg. Booster dose of Invega Sustenna 117mg tomorrow ( renally dosed). Continue CBZ as ordered. Continue to monitor on the inpatient unit. Continue other medications and care as ordered. Justification for Cont. Inpt. Med changes in process. High risk for decompensation pending psychiatric stabilization. Discharge Planning Pending psychiatric stabilization. Anticipate dispo beginning of next week, home with OP follow up. Request HC Surrog/Guard Advoc?: Yes Problem Qualifiers (1) Schizophrenia: Qualified Code: F20.1 - Disorganized schizophrenia Alphonse Barber MD March 31, 2017 11:14
[2017-03-31 16:00] VITALS: BP 137/74; PULSE 88; RESP 18; TEMP 98.5; O2SAT 98
[2017-03-31] MEDS ORDERED: cloZAPine 25 MG TAB PO SCH (21:00)
[2017-04-01] MEDS: LORazepam 1 MG TAB PO PRN (02:15)
[2017-04-01 06:36] VITALS: BP 129/71; PULSE 97; RESP 18; TEMP 97.2; O2SAT 92
[2017-04-01] MEDS ORDERED: PALIPERIDONE PALMITATE 117 MG/0.75 ML SYR IM ONE (09:00)
[2017-04-01] MEDS: cloZAPine 25 MG TAB PO SCH (09:07)
[2017-04-01] MEDS: carBAMazepine 200 MG TAB PO SCH ×2 (09:07→21:00)
--- NOTE | 2017-04-01 09:07 | HHI.PYPN ---
Subjective Remarks Patient seen and examined with counselor. Chart reviewed. Case discussed with nursing staff reports patient has been no behavioral problem. On my examination today, the patient appears to be in good spirits. His thoughts continue to grow more linear with the benefit of psychopharmacologic treatment. He denies side effects from medications. No SI or HI voiced. He says "I feel fine; I feel normal. I just pass gas." No other issues noted. Review of Systems ROS Limitations: Poor Historian Except as stated in HPI: all other systems reviewed are Neg Objective Alert: Yes [place]: Person, Place Mood: Calm Affect: Blunted Memory Intact: Comment (not formally assessed) Hallucinations: Other (denies AVH) Delusions: No Delusion Type: Other (No delusions) Suicidal: Ideation (no SI) Homicidal: Ideation (no HI) Insight/Judgment Poor Remarks No motoric abnormalities noted. Steady gait and station. Grooming and hygiene improved. Labs Labs reviewed. Vitals/IOs Vital Signs Date Time Temp Pulse Resp B/P Pulse Ox O2 Delivery O2 Flow Rate FiO2 04/01/17 06:36 97.2 97 18 129/71 92 Assessment & Plan Problem List: (1) Schizophrenia ICD Code: F20.9 Assessment & Plan Continue clozapine titration over the weekend. Patient received booster dose of Invega Sustenna today without incident. Continue other medications and care as ordered. Continue to monitor on inpatient psychiatric unit. Justification for Cont. Inpt. Medication changes in process. High risk for decompensation in a restrictive environment pending psychiatric stabilization. Discharge Planning Pending psychiatric stabilization. Possible discharge beginning of next week. Request HC Surrog/Guard Advoc?: Yes Problem Qualifiers (1) Schizophrenia: Qualified Code: F20.1 - Disorganized schizophrenia Alphonse Barber MD April 01, 2017 09:07
[2017-04-01 18:10] VITALS: BP 148/73; PULSE 104; RESP 16; TEMP 98.3; O2SAT 97
[2017-04-01] MEDS: cloZAPine 100 MG TAB PO SCH (21:00)
[2017-04-02 06:00] VITALS: BP 124/76; PULSE 100; RESP 18; TEMP 97.4; O2SAT 98
[2017-04-02] MEDS: cloZAPine 25 MG TAB PO SCH (09:00)
[2017-04-02] MEDS: carBAMazepine 200 MG TAB PO SCH ×2 (09:00→22:06)
--- NOTE | 2017-04-02 14:24 | HHI.PYPN ---
Subjective Remarks Patient was seen and case discussed with nursing. Per nursing patient has been talking to himself and responding to internal stimuli. Patient is labile and tearful relating the story before admission. Denies auditory visual hallucinations. Remains disheveled with poor insight Objective Alert: Yes [place]: Person, Place Mood: Calm Affect: Restricted Memory Intact: Comment (not formally assessed) Hallucinations: Other (denies AVH) Delusions: No Delusion Type: Other (internally stimulated) Suicidal: Ideation (no SI) Homicidal: Ideation (no HI) Insight/Judgment Poor Vitals/IOs Vital Signs Date Time Temp Pulse Resp B/P Pulse Ox O2 Delivery O2 Flow Rate FiO2 04/02/17 06:00 97.4 100 18 124/76 98 Assessment & Plan Problem List: (1) Schizophrenia ICD Code: F20.9 Assessment & Plan Continue current treatment plan Justification for Cont. Inpt. Patient will decompensate in a less restrictive setting Request HC Surrog/Guard Advoc?: Yes Problem Qualifiers (1) Schizophrenia: Qualified Code: F20.1 - Disorganized schizophrenia Stepan Peres DO April 02, 2017 14:24
[2017-04-02 14:53] VITALS: BP 139/77; PULSE 101; RESP 18; TEMP 98.5; O2SAT 97
[2017-04-02] MEDS: ACETAMINOPHEN 325 MG TAB PO PRN (17:54)
[2017-04-02 18:00] VITALS: BP 139/77; PULSE 101; RESP 18; TEMP 98; O2SAT 97
[2017-04-02] MEDS: cloZAPine 100 MG TAB PO SCH (21:00)
[2017-04-02] MEDS: diphenhydrAMINE HCL 50 MG CAP PO PRN (22:06)
[2017-04-02] MEDS: LORazepam 1 MG TAB PO PRN (22:07)
[2017-04-03 05:49] VITALS: BP 131/78; PULSE 98; RESP 18; TEMP 98.2; O2SAT 98
[2017-04-03] MEDS: cloZAPine 25 MG TAB PO SCH (08:15)
[2017-04-03] MEDS: carBAMazepine 200 MG TAB PO SCH ×2 (08:15→21:04)
--- NOTE | 2017-04-03 11:49 | HHI.PYPN ---
Subjective Remarks Patient was seen and case discussed with nursing. He is no longer labile and appears more organized compared to yesterday. His compliant with his medications. He says he notices that "my emotions of calm down." And "I am normal in my brain." Largely seclusive to self. Denies auditory visual hallucinations Objective Alert: Yes [place]: Person, Place Mood: Calm Affect: Blunted Memory Intact: Comment (not formally assessed) Hallucinations: Other (denies AVH) Delusions: No Delusion Type: Other (internally stimulated) Suicidal: Ideation (no SI) Homicidal: Ideation (no HI) Insight/Judgment Poor Vitals/IOs Vital Signs Date Time Temp Pulse Resp B/P Pulse Ox O2 Delivery O2 Flow Rate FiO2 04/03/17 05:49 98.2 98 18 131/78 98 Assessment & Plan Problem List: (1) Schizophrenia ICD Code: F20.9 Assessment & Plan Continue current treatment plan Justification for Cont. Inpt. Patient will decompensate in a less restrictive setting Request HC Surrog/Guard Advoc?: Yes Problem Qualifiers (1) Schizophrenia: Qualified Code: F20.1 - Disorganized schizophrenia Stepan Peres DO April 03, 2017 11:49
[2017-04-03] MEDS: LORazepam 1 MG TAB PO PRN (13:35)
[2017-04-03 18:14] VITALS: BP 171/72; PULSE 110; RESP 18; TEMP 98; O2SAT 95
[2017-04-03 20:14] VITALS: BP 140/85; PULSE 98
[2017-04-03] MEDS: cloZAPine 100 MG TAB PO SCH (21:04)
[2017-04-04] MEDS: ALUMINUM/MAGNESIUM/SIMETH 30 ML CUP PO PRN ×2 (02:07→18:26)
[2017-04-04] MEDS: diphenhydrAMINE HCL 50 MG CAP PO PRN (02:08)
[2017-04-04 06:08] VITALS: BP 127/70; PULSE 85; RESP 18; TEMP 97.3; O2SAT 97
[2017-04-04] MEDS: carBAMazepine 200 MG TAB PO SCH ×2 (08:20→21:08)
[2017-04-04] MEDS: LORazepam 1 MG TAB PO PRN (08:21)
[2017-04-04] MEDS: cloZAPine 25 MG TAB PO SCH (08:21)
[2017-04-04 09:04] LABS: AUTOMATED NEUTROPHIL # 2.7 TH/MM3 (1.8-7.7); BASOPHIL % 0.5 % (0.0-2.0); EOSINOPHIL # 0.3 TH/MM3 (0-0.4); EOSINOPHIL % 4.6 % (0.0-4.0); HEMATOCRIT 36.9 % (39.0-51.0); HEMO FLAGS DIFF FINAL; LYMPH % 38.2 % (9.0-44.0); LYMPHOCYTE # 2.3 TH/MM3 (1.0-4.8); MEAN CELL VOLUME 98.9 FL (80.0-100.0); MEAN CORPUSCULAR HEMOGLOBIN 32.4 PG (27.0-34.0); MEAN CORPUSCULAR HGB CONC 32.8 % (32.0-36.0); MONO % 11.5 % (0.0-8.0); NEUT % 45.2 % (16.0-70.0); PLATELET COUNT 178 TH/MM3 (150-450); RED BLOOD COUNT 3.73 MIL/MM3 (4.50-5.90); RED CELL DISTRIBUTION WIDTH 12.5 % (11.6-17.2)
--- NOTE | 2017-04-04 10:17 | HHI.PYPN ---
Subjective Remarks Patient seen and examined with counselor and nurse. Chart reviewed. Case discussed with nursing staff who reports that the patient has been in good behavioral control and asking appropriate questions about medications. On my examination today, the patient's thought process once again seems more organized. No SI or HI. Denies AVH. Denies side effects from medications. Hopeful for discharge within the next few days. Small abrasion to palm of L hand playing basketball but otherwise no physical complaints. Review of Systems Except as stated in HPI: all other systems reviewed are Neg Objective Alert: Yes [place]: Person, Place Mood: Calm Affect: Blunted Memory Intact: Comment (not formally assessed) Hallucinations: Other (No AVH) Delusions: No Delusion Type: Other (No delusions) Suicidal: Ideation (no SI) Homicidal: Ideation (no HI) Insight/Judgment Poor Remarks No motor abnormalities noted. TP fairly linear. Speech wnl for rate, tone, volume. Grooming and hygiene remain improved. Labs Test 04/04/17 07:04 White Blood Count 6.0 TH/MM3 Red Blood Count 3.73 MIL/MM3 Hemoglobin 12.1 GM/DL Hematocrit 36.9 % Mean Corpuscular Volume 98.9 FL Mean Corpuscular Hemoglobin 32.4 PG Mean Corpuscular Hemoglobin 32.8 % Concent Red Cell Distribution Width 12.5 % Platelet Count 178 TH/MM3 Mean Platelet Volume 9.5 FL Neutrophils (%) (Auto) 45.2 % Lymphocytes (%) (Auto) 38.2 % Monocytes (%) (Auto) 11.5 % Eosinophils (%) (Auto) 4.6 % Basophils (%) (Auto) 0.5 % Neutrophils # (Auto) 2.7 TH/MM3 Lymphocytes # (Auto) 2.3 TH/MM3 Monocytes # (Auto) 0.7 TH/MM3 Eosinophils # (Auto) 0.3 TH/MM3 Basophils # (Auto) 0.0 TH/MM3 CBC Comment DIFF FINAL Differential Comment Anemia stable. ANC remains adequate for clozapine therapy. Vitals/IOs Vital Signs Date Time Temp Pulse Resp B/P Pulse Ox O2 Delivery O2 Flow Rate FiO2 04/04/17 06:08 97.3 85 18 127/70 97 Assessment & Plan Problem List: (1) Schizophrenia ICD Code: F20.9 Assessment & Plan Titrate clozapine to 50/150mg with plans for further titration into the therapeutic range on outpatient basis. Sustenna on board. Continue CBZ as ordered. Continue other medications and care as ordered. Justification for Cont. Inpt. Final discharge planning. Discharge Planning Anticipate discharge tomorrow, Tuesday barring some clinical worsening. Request HC Surrog/Guard Advoc?: Yes Problem Qualifiers (1) Schizophrenia: Qualified Code: F20.1 - Disorganized schizophrenia Alphonse Barber MD April 04, 2017 10:17
[2017-04-04] MEDS ORDERED: PILL SPLITTER OTHER PRN (14:00)
[2017-04-04 17:45] VITALS: BP 144/76; PULSE 92; RESP 16; TEMP 98.7; O2SAT 98
[2017-04-04] MEDS ORDERED: cloZAPine 100 MG TAB PO SCH (21:00)
[2017-04-05] MEDS: LORazepam 1 MG TAB PO PRN (00:50)
[2017-04-05 05:55] VITALS: BP 114/65; PULSE 88; RESP 18; TEMP 97.1; O2SAT 95
[2017-04-05] MEDS ORDERED: cloZAPine 25 MG TAB PO SCH (09:00)
[2017-04-05] MEDS ORDERED: CLOZ50TA PO (09:54)
[2017-04-05] MEDS ORDERED: PALI117P IM (09:54)
[2017-04-05] MEDS ORDERED: CARB200T PO (09:54)
--- NOTE | 2017-04-05 09:55 | HHI.DS ---
Psychiatry Discharge Summary Inpatient Psychiatric care?: Yes Advance Directive: No Reason Not Provided: Due to Patient Condition Mental Health AdvanceDirective: No Health Care Proxy: No Admission Admission Date Mar 18, 2017 at 18:21 Admission Diagnosis: (1) Schizophrenia, disorganized, chronic ICD Code: F20.1 Brief History This is a 57-year-old male with a long history of psychiatric illness, variously described as schizoaffective disorder and schizophrenia. Patient was sent here from [facility] and he was not accompanied by any clinical information. He is however a patient there and is treated on an outpatient basis. He has been treated with Risperdal and Tegretol in the recent past and Clozaril in the distant past. The patient is an extremely poor historian and unable to answer questions for this physician. In fact, he exhibits echolalia with this physician. He was not able to eat his dinner in front of this physician despite being repeatedly encouraged to do so. He is disorganized and obviously unable to care for himself. There is no information as to whether the patient has been compliant with his medicines and the recent past, using drugs, etc. Tobacco Use In Past 30 Days: 5 or More Cigarettes/Day Alcohol Use: Never Hospital Course Patient was admitted to a locked, inpatient psychiatric unit. A general medical consultation was obtained. Appropriate precautions were in place throughout patient's hospital stay. Patient was seen and examined daily on the unit by psychiatry and also visited by counselor. Medications were adjusted. Patient was started back on his carbamazepine for mood stabilization and was also started on clozapine and Invega Sustenna. Patient tolerated medications well without side effects. Patient had improvement in his presenting psychiatric symptomatology. In particular, patient's prominent thought and behavioral disorganization, present at admission, were significantly improved at time of discharge. Charting indicates that he is independent for hygiene and other ADLs at time of discharge. There was no evidence of any suicidality or homicidality on the inpatient unit. Patient remained in good behavioral control during his hospital stay. Case was discussed with patient's outpatient case packer, Mr. Montejo. On the day of discharge: Patient seen and examined. Chart reviewed. Case discussed with nurse, counselor and recreation therapist in treatment team. No behavioral issues noted. On my examination today, the patient requests discharge from the inpatient psychiatric unit. Thought process much more organized versus admission. Denies suicidal or homicidal ideation, intent or plan. No evidence of mood instability. Denies audiovisual hallucinations. No delusional beliefs. Denies side effects from medications. Psychoeducation provided regarding patient's medication regimen. No physical complaints. Weighing the acute, chronic, and protective factors and based on the available evidence, I nib assembler to a reasonable degree of medical certainty that the patient is at low imminent risk of harm to self or others from a mental illness as defined under the [place] act and his level of function is adequate for outpatient care. Patient has maximized benefit from this inpatient psychiatric hospital stay and will be discharged home with psychiatric follow-up as arranged by counselor. Patient is also to follow-up with primary care. I have counseled the patient regarding warning signs need to return to the psychiatric emergency room as part of a general safety plan. Results Blood Pressure 114 / 65 Vital Signs Date Time Temp Pulse Resp B/P Pulse Ox O2 Delivery O2 Flow Rate FiO2 04/05/17 05:55 97.1 88 18 114/65 95 Laboratory Tests Test 04/04/17 07:04 Red Blood Count 3.73 MIL/MM3 (4.50-5.90) Hemoglobin 12.1 GM/DL (13.0-17.0) Hematocrit 36.9 % (39.0-51.0) Monocytes (%) (Auto) 11.5 % (0.0-8.0) Eosinophils (%) (Auto) 4.6 % (0.0-4.0) Summary of Procedures None done Imaging Last Impressions Renal Ultrasound 03/24/17 0000 Signed Impressions: Service Date/Time: February 16:50 - CONCLUSION: 1. Kidneys are abnormally increased in echogenicity with poor cortical medullary differentiation consistent with medical renal disease. 2. No evidence hydronephrosis. There are small benign-appearing cystic lesions. Momo Willard MD Pending results at discharge: No Medications # of Antipsychotic meds at D/C: 2 Appropriate >1 Antipsych meds?: 4 Approp Antipsych med options 1 - Minimum of three failed multiple trials of monotherapy. 2 - Documented plan to taper to monotherapy due to previous use of multiple meds OR cross-taper in progress at D/C. 3 - Documentation of augmentation of Clozapine. 4 - Justification other than those listed in allowable values 1-3, document here : Required multiple agents for acute stabilization. Discharge Discharge Date: April 05, 2017 Discharge Diagnosis: (1) Schizophrenia Diagnosis: Principal (stabilized) ICD Code: F20.9 GAF on discharge is 55. Mental Status Exam at Disch Patient is casually dressed. He is well groomed. He is awake and alert and oriented to person and hospital at least. No evidence of delirium. No motor abnormalities noted. Speech is within normal limits for rate, tone and volume. Language and fund of knowledge seem average. Mood is stable and affect is blunted. Thought process linear. No loosening of associations. No evident delusions. Denies audiovisual hallucinations. Denies suicidal or homicidal ideation, intent or plan. Insight and judgment are fair. Pt Condition on Discharge: Stable Discharge Disposition: Discharge Home Discharge Instructions Diet Instructions: As Tolerated, No Restrictions Activities you can perform: Weight Bearing as Pardeep Scheduled Appointment: Dr. Urena Appointment Date: April 06, 2017 Appointment Time: 3:00pm New Orders: CBC WITH DIFF - 1 Week CBC WITH DIFF - 04/19/17 CBC WITH DIFF - 04/26/17 CBC WITH DIFF - 05/03/17 CBC WITH DIFF - 05/10/17 CBC WITH DIFF - 05/17/17 CBC WITH DIFF - 05/24/17 CBC WITH DIFF - 05/31/ CBC WITH DIFF - 06/07/17 CBC WITH DIFF - 06/14/ CBC WITH DIFF - 06/21/17 CBC WITH DIFF - 06/28/ CBC WITH DIFF - 07/05/ CBC WITH DIFF - 07/12/17 CBC WITH DIFF - 07/19/ CBC WITH DIFF - 07/26/ CBC WITH DIFF - 08/02/ CBC WITH DIFF - 08/09/17 CBC WITH DIFF - 08/16/17 CBC WITH DIFF - 08/23/17 CBC WITH DIFF - 08/30/17 CBC WITH DIFF - 09/06/17 CBC WITH DIFF - 09/13/17 CBC WITH DIFF - 09/20/17 New Medications: Clozapine (Clozapine) 50 Mg Tab 50 MG PO DIRECTED 50mg PO qAM and 150mg PO qHS. Mental Health Days 15 Ref 1 TAB Paliperidone Palmitate Inj (Invega Sustenna Inj) 117 Mg/0.75 Ml Inj 117 MG IM Q28D This dose of Invega Sustenna is due on 04/29/2017. Mental Health # 1 Ref 0 VIAL Carbamazepine (Carbamazepine) 200 Mg Tab 200 MG PO Q12HR Mental Health Days 15 Ref 1 TAB Discontinued Medications: Carbamazepine (Tegretol) 200 Mg Tab 100 MG PO BID #60 Ref 0 TAB Doxepin (Doxepin) 100 Mg Cap 100 MG PO HS #30 Ref 0 CAP Risperidone (Risperdal) 4 Mg Tab 4 MG PO HS #30 Ref 0 TAB Discharge Time > 30 minutes Discharge/Advance Care Plan Health Problems: (1) Schizophrenia Goals to promote your health * To prevent worsening of your condition and complications * To maintain your health at the optimal level Directions to meet your goals Take your medications as prescribed Follow your dietary instruction Follow activity as directed Keep your appointments as scheduled Take your immunizations and boosters as scheduled If your symptoms worsen call your PCP, if no PCP go to Urgent Care Center or Emergency Room For 20/06 questions related to your inpatient stay or results of tests pending at discharge, please contact Dr. Alphonse Barber at Smoking is Dangerous to Your Health. Avoid second hand smoking Problem Qualifiers (1) Schizophrenia: Qualified Code: F20.1 - Disorganized schizophrenia Alphonse Barber MD April 05, 2017 09:55
[2017-04-05] MEDS: carBAMazepine 200 MG TAB PO SCH (10:45)
[2017-04-05] MEDS: ALUMINUM/MAGNESIUM/SIMETH 30 ML CUP PO PRN (13:35)
== END 2017-04-05 14:45 | disposition home or self-care (01) | DRG 885 ==
LOC: NEDAMB 12:49 → NEDA 18:21 → H270 19:34
PROVIDERS: ADMIT Psychiatry & Neurology Psychiatry; ATTEND Psychiatry & Neurology Psychiatry
DX: F20.1 Disorganized schizophrenia (principal); N17.9 Acute kidney failure, unspecified; R25.1 Tremor, unspecified; R25.3 Fasciculation; R48.8 Other symbolic dysfunctions; R32 Unspecified urinary incontinence; N18.1 Chronic kidney disease, stage 1; D64.9 Anemia, unspecified; R63.4 Abnormal weight loss; F17.210 Nicotine dependence, cigarettes, uncomplicated; Z68.25 Body mass index [BMI] 25.0-25.9, adult
CPT/HCPCS: 76775; 80048; 80053; 80061; 80156; 80307; 81001; 82948; 83036; 84153; 84443; 85025; 99284; J1200; J1630; J2060; J2426; J3486; Q0163

== ENCOUNTER 2017-04-08 19:01 | Emergency (ER) | payer MEDICARE, OTHER ==
[~2017-04-08] VITALS: Ht 175.3 cm; Wt 65.0 kg
[~2017-04-08 19:01] MED LIST: CARB200T PO; CLOZ50TA PO; PALI117P IM
[2017-04-08 19:06] VITALS: BP 154/83; PULSE 94; RESP 14; TEMP 98.8; O2SAT 98
--- NOTE | 2017-04-08 19:12 | PD ---
Physical Exam Date Seen by Provider: April 08, 2017 Time Seen by Provider: 19:09 Narrative 57 YOWM C/O ACCIDENTAL OVER DOSE. SENT IN FROM THE FACT TEAM FOR EVAL. NO SI OR HI. PT FEELING WELL. NO COMPLAINTS VSS wating for bed asignment Data Data Last Documented VS Vital Signs Date Time Temp Pulse Resp B/P Pulse Ox O2 Delivery O2 Flow Rate FiO2 04/08/17 19:06 98.8 94 14 154/83 98 Room Air [facility] Medical Record Reviewed: No Supervised Visit with MELLISA: Anastacio Lara April 08, 2017 19:12
[2017-04-08 19:30] VITALS: BP 131/83; PULSE 87; RESP 18; O2SAT 96
[2017-04-08] MEDS ORDERED: PROP20TA3 PO (19:38)
[2017-04-08] MEDS ORDERED: OMEP20TA PO (19:38)
[2017-04-08] MEDS ORDERED: METF500T4 PO (19:38)
[2017-04-08] MEDS ORDERED: ENAL10TA PO (19:38)
[2017-04-08] MEDS ORDERED: CLOZ200T PO (19:38)
[2017-04-08] MEDS ORDERED: SIMV20TA PO (19:38)
--- NOTE | 2017-04-08 19:41 | PD ---
HPI Chief Complaint: Medical Clearance Time Seen by Provider: 19:18 Travel History International Travel<30 days: No Contact w/Intl Traveler<30days: No Traveled to known affect area: No History of Present Illness HPI 57-year-old male was brought in by motorboat mechanic inboard for accidental overdose on his medications. Patient's has history of hypertension, diabetes, schizoaffective disorder. Patient normally takes carbamazepine, clozapine, propanolol, simvastatin, omeprazole, enalapril, metformin daily. Business Advisor states that patient took 2 days worth of medications sometime today. Patient states that he took all the medications this morning around 8:00 AM. Patient's motorboat mechanic inboard states the patient seemed to be more drowsy than usual today. Patient denies any headache. Patient denies any chest pain or shortness of breath. Patient denies abdominal pain. Patient denies any focal weakness or numbness of extremity. Patient denies any suicidal ideation.. Patient states that he accidentally took all the medications this morning. In reviewing patient's medications, patient took an extra carbamazepine 400 mg, clozapine 100 mg, propanolol 40 mg, simvastatin 40 mg, omeprazole 20 mg, enalapril 10 mg, metformin 500 mg. PFSH Past Medical History Diabetes: Yes Patient Takes Glucophage: Yes (04/08/2017 @1800) Diminished Hearing: No Hypertension: Yes Psychiatric: Yes (Schizoaffective Disorder ) Tetanus Vaccination: Unknown Past Surgical History Surgical History: No Previous Surgery Family History Family Hypercholesterolemia: Yes Social History Alcohol Use: No Tobacco Use: Yes Substance Use: No Allergies-Medications (Allergen,Severity, Reaction): Coded Allergies: Chlorpromazine (Verified Allergy, Severe, 04/08/17) Uncoded Allergies: NKA (Allergy, Unknown, 08/06/03) THORAZINE (Allergy, Unknown, 08/06/03) Reported Meds & Prescriptions Reported Meds & Active Scripts Active Carbamazepine 200 Mg Tab 200 Mg PO Q12HR 15 Days Reported Enalapril (Enalapril Maleate) 10 Mg Tab 10 Mg PO DAILY Simvastatin 20 Mg Tab 20 Mg PO DAILY Omeprazole 20 Mg Tab 20 Mg PO DAILY Clozapine 200 Mg Tab 400 Mg PO HS Metformin ER (Metformin HCl) 500 Mg Nicola 500 Mg PO DAILY With evening meal Propranolol (Propranolol HCl) 20 Mg Tab 20 Mg PO Q12HR Review of Systems General / Constitutional: No: Fever Eyes: No: Visual changes HENT: No: Headaches Cardiovascular: No: Chest Pain or Discomfort Respiratory: No: Shortness of Breath Gastrointestinal: No: Abdominal Pain Genitourinary: No: Dysuria Musculoskeletal: No: Pain Skin: No Rash Neurologic: No: Weakness Psychiatric: No: Depression Endocrine: No: Polydipsia Hematologic/Lymphatic: No: Easy Bruising Physical Exam Narrative GENERAL: Well-nourished, well-developed patient. SKIN: Focused skin assessment warm/dry. HEAD: Normocephalic. EYES: No scleral icterus. No injection or drainage. NECK: Supple, trachea midline. No JVD or lymphadenopathy. CARDIOVASCULAR: Regular rate and rhythm without murmurs, gallops, or rubs. RESPIRATORY: Breath sounds equal bilaterally. No accessory muscle use. GASTROINTESTINAL: Abdomen soft, non-tender, nondistended. MUSCULOSKELETAL: No cyanosis, or edema. BACK: Nontender without obvious deformity. No CVA tenderness. Neurologic exam: Patient is lethargic however answer questions appropriately. No obvious focal neurological deficit. Data Data Last Documented VS Vital Signs Date Time Temp Pulse Resp B/P Pulse Ox O2 Delivery O2 Flow Rate FiO2 04/08/17 19:30 87 18 131/83 96 Room Air 04/08/17 19:06 98.8 Orders Electrocardiogram (04/08/17 19:33) Complete Blood Count With Diff (04/08/17 19:33) Comprehensive Metabolic Panel (04/08/17 19:33) Prothrombin Time / Inr (Pt) (04/08/17 19:33) Act Partial Throm Time (Ptt) (04/08/17 19:33) Urinalysis - C+S If Indicated (04/08/17 19:33) Carbamazepine (Tegretol) (04/08/17 19:33) Thyroid Stimulating Hormone (04/08/17 19:33) Chest, Single Ap (04/08/17 19:33) Iv Access Insert/Monitor (04/08/17 19:33) Ecg Monitoring (04/08/17 19:33) Oximetry (04/08/17 19:33) Sodium Chlor 0.9% 1000 Ml Inj (Ns 1000 M (04/08/17 19:45) Ondansetron Inj (Zofran Inj) (04/08/17 20:30) Labs Laboratory Tests Test 04/08/17 04/08/17 19:40 20:25 White Blood Count 9.8 TH/MM3 Red Blood Count 3.36 MIL/MM3 Hemoglobin 11.1 GM/DL Hematocrit 32.6 % Mean Corpuscular Volume 97.0 FL Mean Corpuscular Hemoglobin 33.1 PG Mean Corpuscular Hemoglobin 34.2 % Concent Red Cell Distribution Width 12.8 % Platelet Count 185 TH/MM3 Mean Platelet Volume 9.6 FL Neutrophils (%) (Auto) 55.8 % Lymphocytes (%) (Auto) 33.1 % Monocytes (%) (Auto) 7.1 % Eosinophils (%) (Auto) 3.6 % Basophils (%) (Auto) 0.4 % Neutrophils # (Auto) 5.5 TH/MM3 Lymphocytes # (Auto) 3.2 TH/MM3 Monocytes # (Auto) 0.7 TH/MM3 Eosinophils # (Auto) 0.4 TH/MM3 Basophils # (Auto) 0.0 TH/MM3 CBC Comment DIFF FINAL Differential Comment Prothrombin Time 10.7 SEC Prothromb Time International 1.0 RATIO Ratio Activated Partial 27.0 SEC Thromboplast Time Sodium Level 142 MEQ/L Potassium Level 4.8 MEQ/L Chloride Level 110 MEQ/L Carbon Dioxide Level 25.0 MEQ/L Anion Gap 7 MEQ/L Blood Urea Nitrogen 14 MG/DL Creatinine 1.42 MG/DL Estimat Glomerular Filtration 52 ML/MIN Rate Random Glucose 111 MG/DL Calcium Level 8.6 MG/DL Total Bilirubin 0.2 MG/DL Aspartate Amino Transf 18 U/L (AST/SGOT) Alanine Aminotransferase 34 U/L (ALT/SGPT) Alkaline Phosphatase 108 U/L Total Protein 6.1 GM/DL Albumin 3.1 GM/DL Thyroid Stimulating Hormone 1.650 uIU/ML 3rd Gen Carbamazepine (Tegretol) Level 10.0 MCG/ML Urine Color COLORLESS Urine Turbidity CLEAR Urine pH 7.0 Urine Specific [place] 1.002 Urine Protein NEG mg/dL Urine Glucose (UA) NEG mg/dL Urine Ketones NEG mg/dL Urine Occult Blood NEG Urine Nitrite NEG Urine Bilirubin NEG Urine Urobilinogen LESS THAN 2.0 MG/DL Urine Leukocyte Esterase NEG Urine WBC 2 /hpf Urine Amorphous Sediment RARE Microscopic Urinalysis Comment CULT NOT INDICATED MDM Medical Decision Making Medical Screen Exam Complete: Yes Emergency Medical Condition: Yes Interpretation(s) 21:38 PM. Last Impressions Chest X-Ray 04/08/17 1933 Signed Impressions: Service Date/Time: Saturday, April 08, 2017 19:49 - CONCLUSION: No acute disease. Akira Bradley MD 21:38 PM. CBC within normal limit. Creatinine 1.42. Glucose 111. UA is negative. Carbamazepine level 10. Differential Diagnosis Differential diagnosis including accidental overdose of medication, electrolytes abnormality, dehydration, psychiatric issues. Narrative Course 57-year-old male was brought to the ED by motorboat mechanic inboard for accidentally overdosed on her medications. Normal saline solution 1 25 cc an hour. 20 1:42 PM. Reexamination patient's awake and alert oriented 3. Patient a steady on his feet. Patient sitting up and eating dinner without any difficulty. Diagnosis Primary Impression: Accidental drug overdose Qualified Code: T50.901A - Accidental drug overdose, initial encounter Patient Instructions: General Instructions Additional Instructions: No medication tomorrow. Resume taking medication on Tuesday. Follow-up with personal physician. Return to the emergency room if any problem. Med/Other Pt SpecificInfo: No Change to Meds Disposition: 01 DISCHARGE HOME Condition: Stable Luis Rapp MD April 08, 2017 19:41
--- NOTE | 2017-04-08 20:12 | RADRPT ---
EXAM DATE/TIME: 04/08/2017 19:49 [facility] COMPARISON: No previous studies available for comparison. INDICATIONS : Shortness of breath. MEDICAL HISTORY : None. SURGICAL HISTORY : None. ENCOUNTER: Initial ACUITY: 1 day PAIN SCORE: Non-responsive. LOCATION: chest FINDINGS: A single view of the chest demonstrates the lungs to be symmetrically aerated without evidence of mas s, infiltrate or effusion. The cardiomediastinal contours are unremarkable. Osseous structures are intact. CONCLUSION: No acute disease. Akira Bradley MD on April 08, 2017 at 20:10 Board Certified Radiologist. This report was verified electronically.
[2017-04-08 20:30] VITALS: BP 120/72; PULSE 92; RESP 18; O2SAT 97
[2017-04-08] MEDS ORDERED: ONDANSETRON HCL 4 MG/2 ML VIAL IV PUSH ONE (20:30)
[2017-04-08] MEDS: SODIUM CHLOR 0.9% 1000 ML INJ 1,000 ML IV SCH (20:32)
[2017-04-08 20:40] LABS: AUTOMATED NEUTROPHIL # 5.5 TH/MM3 (1.8-7.7); BASOPHIL % 0.4 % (0.0-2.0); EOSINOPHIL # 0.4 TH/MM3 (0-0.4); EOSINOPHIL % 3.6 % (0.0-4.0); HEMATOCRIT 32.6 % (39.0-51.0); HEMO FLAGS DIFF FINAL; LYMPH % 33.1 % (9.0-44.0); LYMPHOCYTE # 3.2 TH/MM3 (1.0-4.8); MEAN CORPUSCULAR HEMOGLOBIN 33.1 PG (27.0-34.0); MEAN CORPUSCULAR HGB CONC 34.2 % (32.0-36.0); MONO % 7.1 % (0.0-8.0); NEUT % 55.8 % (16.0-70.0); PLATELET COUNT 185 TH/MM3 (150-450); RED BLOOD COUNT 3.36 MIL/MM3 (4.50-5.90); RED CELL DISTRIBUTION WIDTH 12.8 % (11.6-17.2); WHITE BLOOD COUNT 9.8 TH/MM3 (4.0-11.0)
[2017-04-08 20:50] LABS: PROTHROMBIN TIME - PATIENT 10.7 SEC (9.8-11.6)
[2017-04-08 21:00] LABS: BLOOD, URINE NEG (NEG); COMMENT (UR) CULT NOT INDICATED; CULTURE IF INDICATED CULT NOT INDICATED; GLUCOSE,URINE NEG (NEG); KETONE, URINE NEG (NEG); NITRITE,URINE NEG (NEG); URINE COLOR COLORLESS (YELLW/STRAW)
[2017-04-08 21:05] LABS: ANION GAP 7 MEQ/L (5-15); AST (GOT) 18 U/L (15-37); BLOOD UREA NITROGEN 14 MG/DL (7-18); CHLORIDE 110 MEQ/L (98-107); GLOMERULAR FILTRATION RATE 52 ML/MIN (>89); POTASSIUM 4.8 MEQ/L (3.5-5.1); SODIUM (NA) 142 MEQ/L (136-145)
[2017-04-08 21:17] LABS: ALKALINE PHOSPHATASE 108 U/L (45-117); ALT (GPT) 34 U/L (12-78); TOTAL BILIRUBIN ADULT 0.2 MG/DL (0.2-1.0)
[2017-04-08 21:44] VITALS: BP 114/70; PULSE 87; RESP 18; O2SAT 95
[2017-04-08 23:00] VITALS: BP 124/74; PULSE 88; RESP 18; O2SAT 95
[2017-04-09 00:27] VITALS: BP 134/76; PULSE 74; RESP 18; O2SAT 96
[2017-04-09] MEDS: SODIUM CHLOR 0.9% 1000 ML INJ 1,000 ML IV SCH (03:45)
[2017-04-09 05:45] VITALS: BP 173/88; PULSE 89; RESP 18; O2SAT 98
--- NOTE | 2017-04-09 13:41 | EKG ---
Date Performed: 04/08/2017 Time Performed: 19:53:33 PTAGE: 57 years EKG: Sinus rhythm Since previous tracing, no significant change noted NORMAL ECG PREVIOUS TRACING : 04/24/1999 20.35 DOCTOR: Kylie Burns Interpretating Date/Time 04/09/2017 13:39:52
== END 2017-04-09 07:05 | disposition home or self-care (01) ==
LOC: NEPC 19:01 → NEPD 04-09 07:05
DX: T50.991A Poisoning by other drugs, medicaments and biological substances, accidental (unintentional), initial encounter (principal); E11.9 Type 2 diabetes mellitus without complications; I10 Essential (primary) hypertension; F25.9 Schizoaffective disorder, unspecified; Y92.009 Unspecified place in unspecified non-institutional (private) residence as the place of occurrence of the external cause; Z72.0 Tobacco use; Z79.84 Long term (current) use of oral hypoglycemic drugs
CPT/HCPCS: 71010; 80053; 80156; 81001; 84443; 85025; 85610; 85730; 93005; 96361; 96374; 99284; J2405; J7030